=== PATIENT | female | born 2000 | race Caucasian/White ===

== ENCOUNTER 2021-09-15 01:12 | Outpatient (CLI) | payer MEDICAID, SELFPAY ==
--- NOTE | 2021-09-15 10:30 | DI.US_ITS ---
Exam(s) US OB 1ST TRIMESTER EXAM: US OB 1ST TRIMESTER CLINICAL HISTORY: SUPERVISION NORMAL Z34.91, SIZE AND DATES. COMPARISON: No exams were available for comparison TECHNIQUE: Transabdominal obstetrical ultrasound performed. FINDINGS: Sonographic images demonstrate a single intrauterine gestation in variable position. Placenta: Anterior Estimated date of delivery By LMP 30 March 2022 : heart rate motion is Dopplered at: 162 BPM. BPD: 28mm = 14+ 6 weeks HC: 96mm = 14+ 3 weeks AC: 83mm = 14+ 4 weeks FL: 14 mm = 14+ 1 weeks Sonographically assessed composite gestational age: 14+ 4 weeks Estimated date of delivery based on this ultrasound is: 12 Mar 2022 Amniotic fluid index visually within normal limits. Uterus: 14.4 x 9.5 x 10.2 cm Rt Ovary: 2.4 x 2.6 x 1.7 cm Lt Ovary: 2.4 x 2.4 x 1.2 cm IMPRESSION: Single living intrauterine gestation measuring 14 weeks 4 days.. DATA REPOSITORY:
== END 2021-09-15 01:32 ==
PROVIDERS: Visit Provider Family Medicine
DX: Z34.91 Encounter for supervision of normal pregnancy, unspecified, first trimester (principal)
CPT/HCPCS: 76801

== ENCOUNTER 2021-10-20 02:56 | Outpatient (CLI) | payer MEDICAID, SELFPAY ==
--- NOTE | 2021-10-20 07:00 | DI.US_ITS ---
Exam(s) US OB 2-3 TRIMESTER EXAM: US OB 2-3 TRIMESTER CLINICAL HISTORY: SURVEY, Z34.91. TECHNIQUE: Transabdominal obstetrical ultrasound was performed. COMPARISON: US US OB 1ST TRIMESTER from 09/15/2021 FINDINGS: There is a single viable intrauterine gestation with cardiac activity identified-149 bpm. Amniotic fluid: There is a normal amount of amniotic fluid. Placental location: The placenta is anterior grade 1,with no evidence of placenta previa. ANATOMY: A 3 vessel umbilical cord is seen. A four-chamber cardiac view was obtained. Right and left ventricular outflow tracts were imaged. There are no obvious abnormalities of the spinal column evident. There is no obvious abnormal ity of the anterior abdominal wall. stomach and urinary bladder are identified and there is no evidence of hydronephrosis. No abnormalities of the upper lip region are identified. No evidence of choroid plexus cysts i n the brain. Dating parameters place this at approximately 19 weeks and 4 days gestational age. BPD measures 19 weeks and 5 days HC measures 19 weeks and 4 days AC measures 19 weeks and 5 days FL measures 19 weeks and 3 days Estimated weight is 301 gm-0 pounds 11 ounces Fetus is at the 46th percentile on the Hadlock scale. IMPRESSION:: Single viable intrauterine gestation which is approximately 19 weeks and 4 days gestati onal age, implying an CHAD of March 12, 2022. There are no obvious anomalies evident on today's study. The placenta is anterior with no evidence of placenta previa. There is a normal amount of amniotic fluid. DATA REPOSITORY:
== END 2021-10-20 03:16 ==
PROVIDERS: Visit Provider Family Medicine
DX: Z34.91 Encounter for supervision of normal pregnancy, unspecified, first trimester (principal)
CPT/HCPCS: 76805

== ENCOUNTER 2021-12-13 12:22 | Outpatient (CLI) | payer MEDICAID, SELFPAY ==
[2021-12-13 12:05] VITALS: BP 117/57; PULSE 97; TEMP 36.5
[2021-12-13 12:08] VITALS: BP 117/57; PULSE 97
[2021-12-13] MEDS: Lactated Ringers 1,000 ML 250 ML IV (12:15)
[2021-12-13 12:26] VITALS: BP 117/57; PULSE 97; TEMP 36.5
[2021-12-13 12:30] LABS: Source Nasal/Nares
[2021-12-13] MEDS: Ondansetron 4 MG/2 ML VIAL 8 MG IV (12:37)
[2021-12-13 13:18] VITALS: BP 117/57; PULSE 97; TEMP 36.5
[2021-12-13 13:20] LABS: COVID-19 PCR Negative (Negative)
--- NOTE | 2021-12-13 13:22 | NUR.NOTE ---
RN spoke with MD Lopez to report pt has trace protein in urine and large amount of ketones. Also to report pt is feeling much better since she got the zofran and half a liter of fluid. would like RN to bolus pt with 1500cc of LR then pt can go home if she's feeling betterNursing Note:
[2021-12-13] MEDS: Lactated Ringers 1,000 ML 999 ML IV (13:43)
--- NOTE | 2021-12-13 14:49 | NUR.NOTE ---
RN spoke with MD Lopez, pt is done with 2 liters of fluid and took a nap, pt reports she is feeling well and ready to go home, said pt is ok to go home. RN will discharge ptNursing Note:
--- NOTE | 2022-03-12 22:32 | W.OBNST ---
Date of service: 03/12/22 Time of Service: 21:32 NST Evaluation Reason for NST Reasons for Nonstress Test: OTHER, SEE COMMENT Reason for NST Other: GI Bug Gestational Age Gestational Age in Weeks and Days: 37 Weeks and 3Days Test and Monitor Explained Test/Monitor Explained: Test Explained, Monitor Explained and Patient Verbalized Understanding Vital Signs Blood Pressure: 117/57 Pulse: 97 Temperature: 97.7 F Urine Results Urine Protein: Positive Urine Ketones: Positive Urine Glucose: Negative Urine Blood: Negative NST Information Date on Monitor: 12/13/21 Time on Monitor: 12:01 Date off Monitor: 12/13/21 Time off Monitor: 12: Total Time on Monitor: 21 NST Interventions: IV Fluids Contraction Frequency: 0 NST Evaluation Patient States Movement: Present FHR Baseline: 150 Variability: Moderate 6-25 bpm Accelerations: 10x10 Decelerations: None NST Results: Reactive Note NST Note Note: Reactive NST NST Reviewed and Verified by: Fernanda Vazquez
[2022-03-12 22:33] VITALS: BP 117/57; PULSE 97; TEMP 36.5
== END 2021-12-13 12:23 | disposition home or self-care (01) ==
LOC: BCD 12-16 12:22
PROVIDERS: PCP Nurse Practitioner Family; Visit Provider Family Medicine
DX: O99.612 Diseases of the digestive system complicating pregnancy, second trimester (principal); A09 Infectious gastroenteritis and colitis, unspecified; Z3A.27 27 weeks gestation of pregnancy; Z20.822 Contact with and (suspected) exposure to COVID-19
CPT/HCPCS: 59025; 87635; 96360; 96361; J2405

== ENCOUNTER 2022-01-15 02:00 | Outpatient (CLI) | payer MEDICAID, SELFPAY ==
--- NOTE | 2022-01-15 14:30 | DI.US_ITS ---
Exam(s) US OB GABBY WEIGHT EXAM: US OB GABBY WEIGHT CLINICAL HISTORY: GROWTH SCAN FOR + COVID, Z34.90. TECHNIQUE: Transabdominal obstetrical ultrasound performed. COMPARISON: US US OB 2-3 TRIMESTER from 10/20/2021 FINDINGS: Transabdominal obstetrical ultrasound performed. FINDINGS: Number of fetuses: One. position: Cephalic. Placental location: There is a grade 1 anterior placenta. No evidence of previa. BIOMETRIC DATA: BPD: 85 mm = 34 weeks 1 day HC: 306 mm = 34 weeks AC: 290 mm = 33 weeks 5 days FL: 66 mm = 33 weeks 6 days EFW: 2285 grms 91% Composite Age: 34 weeks EDC: 02/26/2022 Heart Rate: 135BPM Amniotic fluid index: 21 cm. Visually, amount of fluid is within normal limits. IMPRESSION: 1. Single live intrauterine gestation as above. 2. Estimated weight is 2285gms. 3. Amniotic fluid index is 21 cm. Visually within normal limits. DATA REPOSITORY:
== END 2022-01-15 02:20 ==
PROVIDERS: PCP Nurse Practitioner Family; Visit Provider Nurse Practitioner Family
DX: Z34.93 Encounter for supervision of normal pregnancy, unspecified, third trimester (principal)
CPT/HCPCS: 76816

== ENCOUNTER 2022-02-22 15:54 | Inpatient (IN) | payer MEDICAID, SELFPAY ==
--- NOTE | 2022-02-22 15:58 | W.PM.OBHPL1 ---
Date of service: 02/22/22 Time of Service: 19:46 Assessment and Plan Assessment and plan (1) Encounter for induction of labor: Status: Acute Assessment and plan: 21 yo at 37w3d here for IOL due to preeclampsia at term. Bishops score of 4. Risks and benefits of induction have been discussed with Pam and partner Kameron. FHT cat 1. Baby with potential to be LGA. - plan misoprostol 25mcg vaginally every 4 hours, consider cook catheter, followed by pitocin. - GBS neg (2) Preeclampsia: Status: Acute Assessment and plan: SBP repeatedly over 140 for the last month, 24 hour urine protein in preeclampsia range. Other PEC labs neg. Other than mild headache, she is asymptomatic. - f/u CBC, CMP - check BP per protocol (3) and not yet delivered in third trimester: Status: Acute OB-HPI Labor/Delivery History of Present Illness Reason for Visit: Preeclampsia, Induction of Labor Chief Complaint: Scheduled Induction of Labor Indication for Induction: PreEclampsia. CHAD Calculator Estimated Delivery Date Method Current WG Current Estimate 03/12/22 Ultrasound #1 37w 3d Comments: 21 yo here at 37w3d for IOL due to preeclampsia. Systolic blood pressures have been repeatedly in the 140s and 24 hour urine protein 468mg. Platelets, creatinine, LFTs have been normal. She has had intermittent mild headaches, no other preeclampsia symptoms. +FM, no contractions, leakage of fluid or vaginal bleeding. AB pos. GBS neg. RI. history notable for tobacco use in first trimester, has since quit. Obesity, BMI 34 in first trimester with 44lb weight gain. course otherwise notable for COVID positive in early August. She was fully vaccinated and also received the booster. Growth scan at 32 weeks with baby 91%ile. GABBY 21. Grade 1 anterior placenta. History of Present Expected Delivery Route/Plan Informed Consent Informed Consent: Induction of Labor and Risk,Benefits,Alternatives Discussed Review of Systems Narrative: negative unless as noted in HPI PFSH All Active Problems Encounter for induction of labor (Acute) Preeclampsia (Acute) and not yet delivered in third trimester (Acute) Social History Smoking/Tobacco Use Status: Current-Occasional Tobacco Type: cigarettes Smoking risk assessment performed?: Yes Alcohol Intake: never Drug use: Never Substance use type: does not use History History 1 Para Hx # Term Pregnancies Multiple births Hx # Pregnancies Ectopic pregnancies AB induced Hx Number of Living Children AB spontaneous Meds Allergies and Home Medications Home Medications Medication Instructions Recorded Confirmed Type folic acid 400 mcg tablet 400 mcg PO DAILY 02/22/22 02/22/22 History ondansetron HCl 4 mg tablet 4 mg PO Q8H PRN PRN 02/22/22 02/22/22 History vits,calcium 91-iron 28 1 pkg PO DAILY 02/22/22 02/22/22 History mg-folic 975 mcg-dha 200 mg oral pack ( + DHA) Exam Physical Exam Vital Signs Reviewed: Yes Constitutional Constitutional: no acute distress Detailed Labor and Delivery Exam Dilation: 1 Effacement (%): 50 station: -3 Cervix position: mid Consistency: medium Reagan Score: Cervical Points Exam 0 1 2 3 Dilation Closed 1-2cm 3-4 cm 5-6cm Effacement 0-30% 40-50% 60-70% 80% Consistency Firm Medium Soft Station -3 -2 -1,0 +1,+2 Position Posterior Mid Anterior REAGAN Score(Cervical Ripeness Score): 4 Contraction Frequency(min): 0 Fetus A Heart Rate Baseline: 125 Monitor Accelerations: 15 X 15 Monitor Decelerations: None Variability: Moderate (6-25 BPM) Presentation: Vertex Est. Weight: 3628.739 g Respiratory Exam Respiratory Exam: Normal Cardiovascular Exam Cardiovascular Exam: Normal Extremities Exam Extremities Exam: Normal Neurological Exam Neurological Exam: Normal Psychiatric Exam Psychiatric Exam: Normal Results Results Blood Type: AB+ Rubella Status: Immune Varicella Immunity: Not Tested Risk Assessment Risk for Shoulder Dystocia Historical/Initial OB: POSITIVE FOR: Pre- BMI>30 40 Weeks: POSTIVE FOR: Maternal Weight Gain >40lb; NEGATIVE FOR: EFW> 4500 gms or Post Dates Increased Risk?: Yes Risk for Pre-Eclampsia Daily Dose ASA Indicated: Yes Risk for Post- Hemorrhage At Risk?: No Risks Reviewed Risks Reviewed Upon Admission: Yes
--- OUTSIDE RECORDS SUMMARY | 2022-02-22 18:05 | XMS_ITS ---
:2000 Author Care Team Providers Name Role Phone AUNDREA EDUARDO Primary Care Provider [phone] AUNDREA EDUARDO Referring Provider [phone] HERBERT VAIL Primary Care Provider [phone] DR. JACKSON Primary Care Provider Unavailable DR. JACKSON Referring Provider Unavailable Allergies Code Code System Name Reaction Severity Status Onset NKDA ? Medications Name Status Start Date Stop Date ? ? ibuprofen 200 mg tablet Active ? Not avai lable Take 1 tablet every 6 hours by oral route as needed. 11/13 (21) 1 mg-20 mcg tablet Active ? Not available Take 1 tablet every day by oral route. Notes: nexplanon Problems Name Status Onset Date Source ? Posttraumatic Stress Disorder Active 08/08/2019 ? Pain in Right Knee Active ? ? Procedures Date Name Performed by ? 08/16/2019 MRI, Lower Extremity Joint(s), W/o [facility]rast [address] [place] [id number] (Work [address]) Results Lab Results Date Name Specimen Result Interpretation Description Value Range Status Address ? 09/09/2020 SARS CoV 2 ? Upper nasopharyngeal ? [facility] (COVID-19), Source Labor atory QL, dog boarder-PCR, & Respiratory Patho logy: Specimen [address] [facility] ? ? Normal Sars Cov-2 not detected not [facility] detected Hospital (Covid-19) Labora tory & Pathology: [address] [place] [address] 08/19/2020 SARS CoV 2 ? Upper nasopharyngeal ? [facility] (COVID-19), Source Labor atory QL, dog boarder-PCR, & Respiratory Patho logy: Specimen [address] [facility] ? ? Normal Sars Cov-2 not detected not [facility] detected [facility] (Covid-19) Labora tory & Pathology: [address] [facility] Past Encounters None recorded. Social History Tobacco Smoking Status Current Some Day Smoker Notes: 3 c ig Vaccine List None recorded. Plan of Care Reminders Provider Appointments None ? ? recorded. Lab None ? ? recorded. Referral None ? ? recorded. Procedures None ? ? recorded. Surgeries None ? ? recorded. Imaging None ? ? recorded. Vitals 08/16/2019 09:50AM ORTHO 20 FOLLOW UP Height 170.18 cm 08/08/2019 01:50PM ORTHO 20 NEW PATIENT Height Weight BMI Blood Pressure 170.18 cm 95.25 kg 32.9 kg/m2 122/74 mm[Hg]
[2022-02-22] MEDS: Normal Saline Flush 10 ML SYR IVP (19:20)
[2022-02-22 19:25] LABS: HCT 33.4 % (36.0-46.0); HGB 10.8 g/dL (11.2-15.7); MCH 28.4 pg (27.0-33.0); MCHC 32.3 % (32.0-36.0); MCV 88 fL (80-95); MPV 11.1 fL (8.0-11.0); Platelet Count 243 10^3/uL (130-400); RDW 13.6 % (11.7-14.6); RDW-SD 43.5 fL; WBC 9.46 10^3/uL (4.4-10.8)
[2022-02-22 19:28] LABS: Source Nasal/Nares
[2022-02-22 19:38] LABS: ALT 20 U/L (14-59); AST 19 U/L (15-37); Albumin 2.5 g/dL (3.4-5.0); Alkaline Phosphatase 248 U/L (46-116); BUN 9 mg/dL (7-18); Bilirubin, Total 0.3 mg/dL (0.2-1.0); CREATININE 0.7 mg/dL (0.55-1.02); Calcium 8.6 mg/dL (8.5-10.1); Chloride 105 mmol/L (98-107); Glucose 116 mg/dL (74-106); Potassium 3.4 mmol/L (3.5-5.1); Sodium 138 mmol/L (136-145); Total Protein 6.5 g/dL (6.4-8.2)
[2022-02-22] MEDS: miSOPROStol 25 MCG TAB VG ×2 (19:42→23:50)
[2022-02-22 19:53] VITALS: BP 129/63; PULSE 90; RESP 16; TEMP 36.8
[2022-02-22 20:07] LABS: COVID-19 PCR Negative (Negative)
[2022-02-22 23:21] VITALS: BP 126/66; PULSE 89
--- NOTE | 2022-02-22 23:58 | W.PM.OBNL1 ---
Date of service: 02/22/22 Time of Service: 23:58 Informed Consent Informed Consent: Induction of Labor and Risk,Benefits,Alternatives Discussed Pelvic Exam Dilation: 1 Effacement (%): 50 station: -3 Contractions Monitor Mode: External Contraction Frequency(min): irregular 2-5 Intensity: Mild Fetus A Monitor: Novii Heart Rate Baseline: 135 Presentation: Vertex Variability: Moderate (6-25 BPM) Categories: Category I Accelerations: 15 X 15 Decelerations: None Amniotic Membrane Status: Intact Assessment and Plan Assessment and plan (1) Encounter for induction of labor: Status: Acute Assessment and plan: Pam is doing well. Some mild contractions have begun, no cervical change as of yet. - miso 25mcg given, plan third dose at 4am (2) Preeclampsia: Status: Acute Assessment and plan: BP wnl. Asymptomatic. Platelets, creatinine, LFTs wnl. Objective Abnormal lab results 02/22/22 02/22/22 Range/Units 19:16 19:16 RBC 3.80 L (3.93-5.22) 10^6/uL Hgb 10.8 L (11.2-15.7) g/dL Hct 33.4 L (36.0-46.0) % MPV 11.1 H (8.0-11.0) fL Potassium 3.4 L (3.5-5.1) mmol/L Glucose 116 H (74-106) mg/dL Alkaline Phosphatase 248 H (46-116) U/L Albumin 2.5 L (3.4-5.0) g/dL Temp Pulse Resp BP 36.8 C 89 16 126/66 02/22/22 19:53 02/22/22 23:21 02/22/22 19:53 02/22/22 23:21 Laboratory Results WBC 9.46 10^3/uL (4.4-10.8) 02/22/22 19:16 RBC 3.80 10^6/uL (3.93-5.22) L 02/22/22 19:16 Hgb 10.8 g/dL (11.2-15.7) L 02/22/22 19:16 Hct 33.4 % (36.0-46.0) L 02/22/22 19:16 MCV 88 fL (80-95) 02/22/22 19:16 MCH 28.4 pg (27.0-33.0) 02/22/22 19:16 MCHC 32.3 % (32.0-36.0) 02/22/22 19:16 RDW 13.6 % (11.7-14.6) 02/22/22 19:16 Plt Count 243 10^3/uL (130-400) 02/22/22 19:16 MPV 11.1 fL (8.0-11.0) H 02/22/22 19:16 Sodium 138 mmol/L (136-145) 02/22/22 19:16 Potassium 3.4 mmol/L (3.5-5.1) L 02/22/22 19:16 Chloride 105 mmol/L (98-107) 02/22/22 19:16 Carbon Dioxide 23.0 mmol/L (21.0-32.0) 02/22/22 19:16 Anion Gap 10.0 mmol/L (3-11) 02/22/22 19:16 BUN 9 mg/dL (7-18) 02/22/22 19:16 Creatinine 0.7 mg/dL (0.55-1.02) 02/22/22 19:16 Estimated GFR/1.73 m2 >= 60.00 (mL/min/1.73m2) 02/22/22 19:16 Glucose 116 mg/dL (74-106) H 02/22/22 19:16 Calcium 8.6 mg/dL (8.5-10.1) 02/22/22 19:16 Total Bilirubin 0.3 mg/dL (0.2-1.0) 02/22/22 19:16 AST 19 U/L (15-37) 02/22/22 19:16 ALT 20 U/L (14-59) 02/22/22 19:16 Alkaline Phosphatase 248 U/L (46-116) H 02/22/22 19:16 Total Protein 6.5 g/dL (6.4-8.2) 02/22/22 19:16 Albumin 2.5 g/dL (3.4-5.0) L 02/22/22 19:16 COVID-19 Source Nasal/Nares 02/22/22 19:05 SARS-CoV-2 (PCR) Negative (Negative) 02/22/22 19:05 Patient ABO/Rh AB Positive 02/22/22 19:16 Antibody Screen NEGATIVE 02/22/22 19:16 Subjective Patient Reports: No new Complaints Interval history since last seen: Pam is tired otherwise feeling well. No contractions or cramping felt. No headaches, RUQ pain, new edema, vision changes. Results Hemoglobin/Hematocrit: Hgb 10.8 g/dL (11.2-15.7) L 02/22/22 19:16 Hct 33.4 % (36.0-46.0) L 02/22/22 19:16 Abnormal Lab Findings: Abnormal Labs 02/22/22 02/22/22 19:16 19:16 RBC 3.80 L Hgb 10.8 L Hct 33.4 L MPV 11.1 H Potassium 3.4 L Glucose 116 H Alkaline Phosphatase 248 H Albumin 2.5 L
[2022-02-23] VITALS (36 sets, daily range): BP systolic 92–134; BP diastolic 48–72; PULSE 80–106; RESP 16–18; TEMP 36.5–36.8; BMI 40.5
[2022-02-23] MEDS: miSOPROStol 50 MCG TAB 25 MCG PO (04:01)
[2022-02-23] MEDS: miSOPROStol 25 MCG TAB VG (08:00)
--- NOTE | 2022-02-23 08:16 | W.PM.OBNL1 ---
Date of service: 02/23/22 Time of Service: 08:00 Informed Consent Informed Consent: Induction of Labor and Risk,Benefits,Alternatives Discussed Pelvic Exam Dilation: 2 Effacement (%): 70 station: -3 Cervix Position: mid Consistency: soft BISHOPS Score(Cervical Ripeness Score): 6 Vaginal Exam Presentation: Vertex Contractions Contraction Frequency(min): 2-3 Contraction Duration(sec): 60 Intensity: Mild Fetus A Heart Rate Baseline: 135 Presentation: Vertex Variability: Moderate (6-25 BPM) Categories: Category I Accelerations: 15 X 15 Decelerations: None Assessment and Plan Assessment and plan (1) Encounter for induction of labor: Status: Acute Assessment and plan: After 3 doses of miso, making steady progress with good contraction pattern, albeit mild contractions. 4th dose of miso given vaginally. Plan to reassess at noon, potentially start pitocin. (2) Preeclampsia: Status: Acute Assessment and plan: Blood pressure remains under 140/90. Continue to monitor. Objective Abnormal lab results 02/22/22 02/22/22 Range/Units 19:16 19:16 RBC 3.80 L (3.93-5.22) 10^6/uL Hgb 10.8 L (11.2-15.7) g/dL Hct 33.4 L (36.0-46.0) % MPV 11.1 H (8.0-11.0) fL Potassium 3.4 L (3.5-5.1) mmol/L Glucose 116 H (74-106) mg/dL Alkaline Phosphatase 248 H (46-116) U/L Albumin 2.5 L (3.4-5.0) g/dL Temp Pulse Resp BP 36.5 C 88 17 130/67 02/23/22 07:46 02/23/22 07:46 02/23/22 07:46 02/23/22 07:46 Laboratory Results WBC 9.46 10^3/uL (4.4-10.8) 02/22/22 19:16 RBC 3.80 10^6/uL (3.93-5.22) L 02/22/22 19:16 Hgb 10.8 g/dL (11.2-15.7) L 02/22/22 19:16 Hct 33.4 % (36.0-46.0) L 02/22/22 19:16 MCV 88 fL (80-95) 02/22/22 19:16 MCH 28.4 pg (27.0-33.0) 02/22/22 19:16 MCHC 32.3 % (32.0-36.0) 02/22/22 19:16 RDW 13.6 % (11.7-14.6) 02/22/22 19:16 Plt Count 243 10^3/uL (130-400) 02/22/22 19:16 MPV 11.1 fL (8.0-11.0) H 02/22/22 19:16 Sodium 138 mmol/L (136-145) 02/22/22 19:16 Potassium 3.4 mmol/L (3.5-5.1) L 02/22/22 19:16 Chloride 105 mmol/L (98-107) 02/22/22 19:16 Carbon Dioxide 23.0 mmol/L (21.0-32.0) 02/22/22 19:16 Anion Gap 10.0 mmol/L (3-11) 02/22/22 19:16 BUN 9 mg/dL (7-18) 02/22/22 19:16 Creatinine 0.7 mg/dL (0.55-1.02) 02/22/22 19:16 Estimated GFR/1.73 m2 >= 60.00 (mL/min/1.73m2) 02/22/22 19:16 Glucose 116 mg/dL (74-106) H 02/22/22 19:16 Calcium 8.6 mg/dL (8.5-10.1) 02/22/22 19:16 Total Bilirubin 0.3 mg/dL (0.2-1.0) 02/22/22 19:16 AST 19 U/L (15-37) 02/22/22 19:16 ALT 20 U/L (14-59) 02/22/22 19:16 Alkaline Phosphatase 248 U/L (46-116) H 02/22/22 19:16 Total Protein 6.5 g/dL (6.4-8.2) 02/22/22 19:16 Albumin 2.5 g/dL (3.4-5.0) L 02/22/22 19:16 COVID-19 Source Nasal/Nares 02/22/22 19:05 SARS-CoV-2 (PCR) Negative (Negative) 02/22/22 19:05 Patient ABO/Rh AB Positive 02/22/22 19:16 Antibody Screen NEGATIVE 02/22/22 19:16 Subjective Interval history since last seen: Pam was able to get some rest last night. Feeling crampy discomfort with contractions Results Hemoglobin/Hematocrit: Hgb 10.8 g/dL (11.2-15.7) L 02/22/22 19:16 Hct 33.4 % (36.0-46.0) L 02/22/22 19:16 Abnormal Lab Findings: Abnormal Labs 02/22/22 02/22/22 19:16 19:16 RBC 3.80 L Hgb 10.8 L Hct 33.4 L MPV 11.1 H Potassium 3.4 L Glucose 116 H Alkaline Phosphatase 248 H Albumin 2.5 L
--- NOTE | 2022-02-23 12:05 | W.PM.OBNL1 ---
Date of service: 02/23/22 Time of Service: 12:05 Informed Consent Informed Consent: Induction of Labor and Risk,Benefits,Alternatives Discussed Pelvic Exam Dilation: 3 Effacement (%): 70 station: -3 Cervix Position: mid Consistency: soft BISHOPS Score(Cervical Ripeness Score): 7 Contractions Contraction Frequency(min): 1-3 Contraction Duration(sec): 30-60 Fetus A Heart Rate Baseline: 145 Variability: Moderate (6-25 BPM) Categories: Category I Accelerations: 15 X 15 Decelerations: None Assessment and Plan Assessment and plan (1) Encounter for induction of labor: Status: Acute Assessment and plan: Making slow progress, becoming more uncomfortable. Cervix more favorable. Plan to start pitocin. (2) Preeclampsia: Status: Acute Assessment and plan: Blood pressures continue to be below 140/90. Continue to monitor. Objective Abnormal lab results 02/22/22 02/22/22 Range/Units 19:16 19:16 RBC 3.80 L (3.93-5.22) 10^6/uL Hgb 10.8 L (11.2-15.7) g/dL Hct 33.4 L (36.0-46.0) % MPV 11.1 H (8.0-11.0) fL Potassium 3.4 L (3.5-5.1) mmol/L Glucose 116 H (74-106) mg/dL Alkaline Phosphatase 248 H (46-116) U/L Albumin 2.5 L (3.4-5.0) g/dL Temp Pulse Resp BP 36.5 C 88 17 130/67 02/23/22 07:46 02/23/22 07:46 02/23/22 07:46 02/23/22 07:46 Laboratory Results WBC 9.46 10^3/uL (4.4-10.8) 02/22/22 19:16 RBC 3.80 10^6/uL (3.93-5.22) L 02/22/22 19:16 Hgb 10.8 g/dL (11.2-15.7) L 02/22/22 19:16 Hct 33.4 % (36.0-46.0) L 02/22/22 19:16 MCV 88 fL (80-95) 02/22/22 19:16 MCH 28.4 pg (27.0-33.0) 02/22/22 19:16 MCHC 32.3 % (32.0-36.0) 02/22/22 19:16 RDW 13.6 % (11.7-14.6) 02/22/22 19:16 Plt Count 243 10^3/uL (130-400) 02/22/22 19:16 MPV 11.1 fL (8.0-11.0) H 02/22/22 19:16 Sodium 138 mmol/L (136-145) 02/22/22 19:16 Potassium 3.4 mmol/L (3.5-5.1) L 02/22/22 19:16 Chloride 105 mmol/L (98-107) 02/22/22 19:16 Carbon Dioxide 23.0 mmol/L (21.0-32.0) 02/22/22 19:16 Anion Gap 10.0 mmol/L (3-11) 02/22/22 19:16 BUN 9 mg/dL (7-18) 02/22/22 19:16 Creatinine 0.7 mg/dL (0.55-1.02) 02/22/22 19:16 Estimated GFR/1.73 m2 >= 60.00 (mL/min/1.73m2) 02/22/22 19:16 Glucose 116 mg/dL (74-106) H 02/22/22 19:16 Calcium 8.6 mg/dL (8.5-10.1) 02/22/22 19:16 Total Bilirubin 0.3 mg/dL (0.2-1.0) 02/22/22 19:16 AST 19 U/L (15-37) 02/22/22 19:16 ALT 20 U/L (14-59) 02/22/22 19:16 Alkaline Phosphatase 248 U/L (46-116) H 02/22/22 19:16 Total Protein 6.5 g/dL (6.4-8.2) 02/22/22 19:16 Albumin 2.5 g/dL (3.4-5.0) L 02/22/22 19:16 COVID-19 Source Nasal/Nares 02/22/22 19:05 SARS-CoV-2 (PCR) Negative (Negative) 05/01/22 19:05 Patient ABO/Rh AB Positive 02/22/22 19:16 Antibody Screen NEGATIVE 02/22/22 19:16 Subjective Interval history since last seen: Feeling more uncomfortable but still able to rest. Results Hemoglobin/Hematocrit: Hgb 10.8 g/dL (11.2-15.7) L 02/22/22 19:16 Hct 33.4 % (36.0-46.0) L 02/22/22 19:16 Abnormal Lab Findings: Abnormal Labs 02/22/22 02/22/22 19:16 19:16 RBC 3.80 L Hgb 10.8 L Hct 33.4 L MPV 11.1 H Potassium 3.4 L Glucose 116 H Alkaline Phosphatase 248 H Albumin 2.5 L
[2022-02-23] MEDS: Normal Saline Flush 10 ML SYR IVP (12:29)
[2022-02-23] MEDS: Lactated Ringers 1,000 ML 125 ML IV ×3 (12:33→22:05)
[2022-02-23] MEDS: Oxytocin/Normal Saline 30 UNIT/500 ML BAG 2 UNITS IV (12:38)
--- NOTE | 2022-02-23 13:53 | W.PM.OBNL1 ---
Date of service: 02/23/22 Time of Service: 13:53 Informed Consent Informed Consent: Induction of Labor and Risk,Benefits,Alternatives Discussed Pelvic Exam Comments: deferred Contractions Contraction Frequency(min): 2-4 Contraction Duration(sec): 60 Fetus A Heart Rate Baseline: 140 Variability: Moderate (6-25 BPM) Accelerations: 15 X 15 Decelerations: None Assessment and Plan Assessment and plan (1) Encounter for induction of labor: Status: Acute Assessment and plan: On 6ml/hr pitocin and fetus tolerating well with cat 1 FHT. More uncomfortable, would like to try nitrous soon. She would ultimately like an epidural. (2) Preeclampsia: Status: Acute Assessment and plan: BP wnl. Objective Abnormal lab results 02/22/22 02/22/22 Range/Units 19:16 19:16 RBC 3.80 L (3.93-5.22) 10^6/uL Hgb 10.8 L (11.2-15.7) g/dL Hct 33.4 L (36.0-46.0) % MPV 11.1 H (8.0-11.0) fL Potassium 3.4 L (3.5-5.1) mmol/L Glucose 116 H (74-106) mg/dL Alkaline Phosphatase 248 H (46-116) U/L Albumin 2.5 L (3.4-5.0) g/dL Temp Pulse Resp BP 36.5 C 83 17 126/63 02/23/22 07:46 02/23/22 12:27 02/23/22 07:46 02/23/22 12:27 Laboratory Results WBC 9.46 10^3/uL (4.4-10.8) 02/22/22 19:16 RBC 3.80 10^6/uL (3.93-5.22) L 02/22/22 19:16 Hgb 10.8 g/dL (11.2-15.7) L 02/22/22 19:16 Hct 33.4 % (36.0-46.0) L 02/22/22 19:16 MCV 88 fL (80-95) 02/22/22 19:16 MCH 28.4 pg (27.0-33.0) 02/22/22 19:16 MCHC 32.3 % (32.0-36.0) 02/22/22 19:16 RDW 13.6 % (11.7-14.6) 02/22/22 19:16 Plt Count 243 10^3/uL (130-400) 02/22/22 19:16 MPV 11.1 fL (8.0-11.0) H 02/22/22 19:16 Sodium 138 mmol/L (136-145) 02/22/22 19:16 Potassium 3.4 mmol/L (3.5-5.1) L 02/22/22 19:16 Chloride 105 mmol/L (98-107) 02/22/22 19:16 Carbon Dioxide 23.0 mmol/L (21.0-32.0) 02/22/22 19:16 Anion Gap 10.0 mmol/L (3-11) 02/22/22 19:16 BUN 9 mg/dL (7-18) 02/22/22 19:16 Creatinine 0.7 mg/dL (0.55-1.02) 02/22/22 19:16 Estimated GFR/1.73 m2 >= 60.00 (mL/min/1.73m2) 02/22/22 19:16 Glucose 116 mg/dL (74-106) H 02/22/22 19:16 Calcium 8.6 mg/dL (8.5-10.1) 02/22/22 19:16 Total Bilirubin 0.3 mg/dL (0.2-1.0) 02/22/22 19:16 AST 19 U/L (15-37) 02/22/22 19:16 ALT 20 U/L (14-59) 02/22/22 19:16 Alkaline Phosphatase 248 U/L (46-116) H 02/22/22 19:16 Total Protein 6.5 g/dL (6.4-8.2) 02/22/22 19:16 Albumin 2.5 g/dL (3.4-5.0) L 02/22/22 19:16 COVID-19 Source Nasal/Nares 02/22/22 19:05 SARS-CoV-2 (PCR) Negative (Negative) 02/22/22 19:05 Patient ABO/Rh AB Positive 02/22/22 19:16 Antibody Screen NEGATIVE 02/22/22 19:16 Subjective Interval history since last seen: Starting to feel much more uncomfortable and thinking about trying nitrous soon. On 6ml/hr of pitocin. Results Hemoglobin/Hematocrit: Hgb 10.8 g/dL (11.2-15.7) L 02/22/22 19:16 Hct 33.4 % (36.0-46.0) L 02/22/22 19:16 Abnormal Lab Findings: Abnormal Labs 02/22/22 02/22/22 19:16 19:16 RBC 3.80 L Hgb 10.8 L Hct 33.4 L MPV 11.1 H Potassium 3.4 L Glucose 116 H Alkaline Phosphatase 248 H Albumin 2.5 L
--- NOTE | 2022-02-23 15:46 | W.PM.OBNL1 ---
Date of service: 02/23/22 Time of Service: 15:46 Informed Consent Informed Consent: Induction of Labor and Risk,Benefits,Alternatives Discussed Pelvic Exam Dilation: 4 Effacement (%): 80 station: -3 Vaginal Exam Presentation: Vertex Contractions Contraction Frequency(min): 1-3 Contraction Duration(sec): 60 Fetus A Heart Rate Baseline: 145 Presentation: Vertex Variability: Moderate (6-25 BPM) Accelerations: 15 X 15 Decelerations: None Assessment and Plan Assessment and plan (1) Encounter for induction of labor: Status: Acute Assessment and plan: Continues to make slow progress. Cat 1 FHT. Requesting epidural. Anesthesia paged. Continue pitocin per protoocl. (2) Preeclampsia: Status: Acute Assessment and plan: BP wnl. Objective Abnormal lab results 02/22/22 02/22/22 Range/Units 19:16 19:16 RBC 3.80 L (3.93-5.22) 10^6/uL Hgb 10.8 L (11.2-15.7) g/dL Hct 33.4 L (36.0-46.0) % MPV 11.1 H (8.0-11.0) fL Potassium 3.4 L (3.5-5.1) mmol/L Glucose 116 H (74-106) mg/dL Alkaline Phosphatase 248 H (46-116) U/L Albumin 2.5 L (3.4-5.0) g/dL Temp Pulse Resp BP 36.6 C 85 17 129/67 02/23/22 13:58 02/23/22 13:58 02/23/22 13:58 02/23/22 13:58 Laboratory Results WBC 9.46 10^3/uL (4.4-10.8) 02/22/22 19:16 RBC 3.80 10^6/uL (3.93-5.22) L 02/22/22 19:16 Hgb 10.8 g/dL (11.2-15.7) L 02/22/22 19:16 Hct 33.4 % (36.0-46.0) L 02/22/22 19:16 MCV 88 fL (80-95) 02/22/22 19:16 MCH 28.4 pg (27.0-33.0) 02/22/22 19:16 MCHC 32.3 % (32.0-36.0) 02/22/22 19:16 RDW 13.6 % (11.7-14.6) 02/22/22 19:16 Plt Count 243 10^3/uL (130-400) 02/22/22 19:16 MPV 11.1 fL (8.0-11.0) H 02/22/22 19:16 Sodium 138 mmol/L (136-145) 02/22/22 19:16 Potassium 3.4 mmol/L (3.5-5.1) L 02/22/22 19:16 Chloride 105 mmol/L (98-107) 02/22/22 19:16 Carbon Dioxide 23.0 mmol/L (21.0-32.0) 02/22/22 19:16 Anion Gap 10.0 mmol/L (3-11) 02/22/22 19:16 BUN 9 mg/dL (7-18) 02/22/22 19:16 Creatinine 0.7 mg/dL (0.55-1.02) 02/22/22 19:16 Estimated GFR/1.73 m2 >= 60.00 (mL/min/1.73m2) 02/22/22 19:16 Glucose 116 mg/dL (74-106) H 02/22/22 19:16 Calcium 8.6 mg/dL (8.5-10.1) 02/22/22 19:16 Total Bilirubin 0.3 mg/dL (0.2-1.0) 02/22/22 19:16 AST 19 U/L (15-37) 02/22/22 19:16 ALT 20 U/L (14-59) 02/22/22 19:16 Alkaline Phosphatase 248 U/L (46-116) H 02/22/22 19:16 Total Protein 6.5 g/dL (6.4-8.2) 02/22/22 19:16 Albumin 2.5 g/dL (3.4-5.0) L 02/22/22 19:16 COVID-19 Source Nasal/Nares 02/22/22 19:05 SARS-CoV-2 (PCR) Negative (Negative) 02/22/22 19:05 Patient ABO/Rh AB Positive 02/22/22 19:16 Antibody Screen NEGATIVE 02/22/22 19:16 Subjective Interval history since last seen: Continues to feel more uncomfortable and feeling very tired. On 8 ml/hr pitocin. Results Hemoglobin/Hematocrit: Hgb 10.8 g/dL (11.2-15.7) L 02/22/22 19:16 Hct 33.4 % (36.0-46.0) L 02/22/22 19:16 Abnormal Lab Findings: Abnormal Labs 02/22/22 02/22/22 19:16 19:16 RBC 3.80 L Hgb 10.8 L Hct 33.4 L MPV 11.1 H Potassium 3.4 L Glucose 116 H Alkaline Phosphatase 248 H Albumin 2.5 L
--- NOTE | 2022-02-23 16:00 | W.ANESPRE ---
General Info Date of Service Date Performed: 02/23/22 Height: 5 ft 7 in Weight: 117.48 kg Body Mass Index (BMI): 40.5 Meds Allergies and Home Medications Home Medication Medication Instructions Recorded folic acid 400 mcg tablet 400 mcg PO DAILY 02/22/22 ondansetron HCl 4 mg tablet 4 mg PO Q8H PRN PRN 02/22/22 vits,calcium 91-iron 28 1 pkg PO DAILY 02/22/22 mg-folic 975 mcg-dha 200 mg oral pack ( + DHA) Current Visit Medications: Current Medications Generic Name Dose Route Start Last Admin Trade Name Freq PRN Reason Stop Dose Admin Bupivacaine HCl 0 ml 02/23/22 15:44 Bupivacaine 0.25% Pres-Free 10 Ml Vial EP 02/23/22 15:45 NOW ONE Calcium Carbonate 500 mg 02/22/22 23:55 Calcium Carbonate *Tums* 500 Mg Chew PO QID PRN PRN Fentanyl 0 mcg 02/23/22 15:44 Fentanyl 100 Mcg/2 Ml Vial EP 02/23/22 15:45 NOW ONE Fentanyl/Ropivacaine 200 ml 02/23/22 15:45 Fentanyl/Ropivacaine 2 Mcg/Ml And 0.1% 200 Ml Cadd [place] EP DIRECTED CYRUS Sodium Chloride 500 mls @ 0 mls/hr 02/22/22 15:53 Saline 500ml Bag IV PRN PRN As Directed Ringer's Solution 1,000 mls @ 200 mls/hr 02/22/22 16:00 IV INFUSION CYRUS Ringer's Solution 1,000 mls @ 125 mls/hr 02/23/22 12:00 02/23/22 12:33 IV 125 mls/hr INFUSION CYRUS Administration Oxytocin/Sodium Chloride 30 unit in 500 mls @ 2 mls/hr 02/23/22 12:00 02/23/22 14:02 Pitocin/Normal Saline IV 8 milliunits/min INFUSION CYRUS 8 mls/hr Titration Protocol 2 MILLIUNITS/MIN Ringer's Solution 500 mls @ 500 mls/hr 02/23/22 15:44 IV 02/23/22 16:43 BOLUS ONE IV Miscellaneous Supplies 1 each 02/22/22 16:00 02/22/22 19:20 Iv Access IV 1 each DIRECTED CYRUS Administration Misoprostol 25 mcg 02/22/22 16:00 02/23/22 12:52 Misoprostol 25 Mcg Tab VG Not Given Q4H CYRUS Misoprostol 25 mcg 02/23/22 04:00 02/23/22 04:01 Misoprostol 50 Mcg Tab PO 25 mcg 0400 CYRUS Administration Sodium Chloride 0 ml 02/22/22 15:53 02/23/22 12:29 Normal Saline Flush 10 Ml Syr IVP 10 ml PRN PRN Administration Terbutaline Sulfate 0.25 mg 02/22/22 15:53 Terbutaline 1 Mg/Ml Vial SC PRN PRN PFSH Active Problems Active Problems: Problem Status Onset Code Encounter for induction of labor Z34.90 Preeclampsia O14.90 and not yet delivered in third trimester Z34.93 Tobacco Smoking/Tobacco Use Status: Current-Occasional Tobacco Type: cigarettes Alcohol Alcohol Intake: never Substance Use Substance use: Never Substance use type: does not use Prental History History 1 Para Hx # Term Pregnancies Multiple births Hx # Pregnancies Ectopic pregnancies AB induced Hx Number of Living Children AB spontaneous Vital Signs and Lab Results Vital Signs Most Recent Vital Signs in EMR: Most Recent Vital Signs Temp Pulse Resp BP 36.6 C 85 17 129/67 02/23/22 13:58 02/23/22 13:58 02/23/22 13:58 02/23/22 13:58 Lab Results Result Diagrams: 02/22/22 19:16 02/22/22 19:16 Blood Type / Crossmatch: Patient ABO/Rh AB Positive 02/22/22 Antibody Screen NEGATIVE 02/22/22 Complete Blood Count: White Blood Count 9.46 10^3/uL (4.4-10.8) 02/22/22 19:16 02/22/22 Red Blood Count 3.80 10^6/uL (3.93-5.22) L 02/22/22 19:16 02/22/22 Hemoglobin 10.8 g/dL (11.2-15.7) L 02/22/22 19:16 02/22/22 Hematocrit 33.4 % (36.0-46.0) L 02/22/22 19:16 02/22/22 Platelet Count 243 10^3/uL (130-400) 02/22/22 19:16 02/22/22 Complete Metabolic Panel: Sodium Level 138 mmol/L (136-145) 02/22/22 19:16 02/22/22 Potassium Level 3.4 mmol/L (3.5-5.1) L 02/22/22 19:16 02/22/22 Chloride Level 105 mmol/L (98-107) 02/22/22 19:16 02/22/22 Carbon Dioxide Level 23.0 mmol/L (21.0-32.0) 02/22/22 19:16 02/22/22 Blood Urea Nitrogen 9 mg/dL (7-18) 02/22/22 19:16 02/22/22 Creatinine 0.7 mg/dL (0.55-1.02) 02/22/22 19:16 02/22/22 Estimated GFR/1.73 m2 >= 60.00 (mL/min/1.73m2) 02/22/22 19:16 02/22/22 Calcium Level 8.6 mg/dL (8.5-10.1) 02/22/22 19:16 02/22/22 Albumin 2.5 g/dL (3.4-5.0) L 02/22/22 19:16 02/22/22 Glucose Level 116 mg/dL (74-106) H 02/22/22 19:16 02/22/22 Liver Function Panel: Alanine Aminotransferase (ALT/SGPT) 20 U/L (14-59) 02/22/22 19:16 02/22/22 Aspartate Amino Transf (AST/SGOT) 19 U/L (15-37) 02/22/22 19:16 02/22/22 Coagulation Panel: No Data to Display Cardiac Panel: No Data to Display Arterial Blood Gas: No Data to Display Venous Blood Gas: No Data to Display Pancreas Panel: No Data to Display Thyroid Panel: No Data to Display Infectious Disease: Coronavirus (COVID-19)(PCR) Negative (Negative) 02/22/22 19:05 02/22/22 Coronavirus 2019 Source Nasal/Nares 02/22/22 19:05 02/22/22 Blood Cultures: No Data to Display Toxicology Panel: No Data to Display Panel: No Data to Display Anesthesia Assessment and Plan Anesthesia History Personal History: No History of Anesthesia Complications Family History: No Family History of Anesthesia Complications Exercise Tolerance Exercise Tolerance: Metabolic Equivalents>4 Pertinent Negatives Pertinent Negatives: No Symptoms of GERD Cardiac & Pulmonary Exam Cardiac Exam: Normal S1/S2 Heart Sounds Pulmonary Exam: Clear Bilateral Breath Sounds Implantable Cardiac Device Does patient have a Pacemaker or an ICD?: No Airway Exam Known Difficult Airway: No Mallampati Class: 2 Mouth Opening: Normal (> 3cm) Thyromental Distance: Greater than 3 cm Neck Range of Motion: Full ROM Neck Circumference: Normal Teeth Condition: Normal Dentition ASA Classification ASA Score: ASA 2 Emergency Case?: No NPO Status NPO Status: NPO Clears >2 hours, Solids >8 hours Status Status: Confirmed Anesthesia Plan Resuscitation Status: Full Code Anesthesia Technique: Epidural Anesthesia Airway Planned: Natural Airway Pain Management: Surgeon and patient request nerve block Monitors Used: Standard Monitors
[2022-02-23] MEDS: FentaNYL/ROPIvacaine 2 mcg/ml and 0.1% 200 ML CADD Cassette EP (16:46)
--- NOTE | 2022-02-23 16:54 | W.ANESNEU ---
Epidural/Spinal Catheter Date Performed: 02/23/22 Procedure Start: 16:20 Procedure Stop: 16:48 Requesting Provider: Marina Holcomb Procedure Location: Obstetrics Reason Performed: Labor Epidural Standard Monitors Applied: Blood Pressure and SpO2 Patient Position: Sitting Sedation Given (Indicate Dose Given): No Sedation given Patient Mental Status: Awake Sterility: Hand Hygiene, Surgical Cap, Surgical Mask, Sterile Gloves, Sterile Drape/Sheet and Chlorhexidine Procedure Location: L3-L4 Interspace Epidural Needle: Tuohy 17 Guage Needle Length: 3.5 Inch Needle Approach: Midline Epidural Procedure: Skin Prepped, Sterile Drape Placed, 1% Lidocaine to skin and subcutaneous tissue with 25G needle, Tuohy Needle placed, MICHELE to Saline Used, Epidural Catheter Placed and Positive Heme Noted (On first attempt at L4/5. Catheter removed and reattempted at higher level with good response) Catheter Placed?: Catheter Placed Test Dose (Indicate Dose Given): 5ml 1.5% Lidocaine with 1:200K Epinephrine Given and Negative Test Dose Loss of Resistance Depth (cm): 10 Catheter depth at skin (cm): 15 Dressing: [place] Dressing Placed, Mastisol Used and Dressing reinforced with Tape Epidural Provider Bolus (Indicate Dose Given): Total bolus dose given in 3-5 ml divided doses and Total Ropivacaine 0.1% with Fentanyl 2mcg/ml Given from pump. (ml) Dose:: 10 ml Additives (Indicate Dose Given ): None Infusion Medication: Medication Infusion Began Medication Infusion: Ropivacaine 0.1% with Fentanyl 2mcg/ml Maintenance Infusion Rate (ml/hour): 10 PCEA Bolus Dose (ml): 5 Post Procedure Pain score (0-10): 0 Block Level: T10 Paresthesia: None Ultrasound: Not Used Number of Attempts (See previous attempts in note section): 2 Procedure Tolerated: No Complications and Patient tolerated well Procedure Outcome: Successful Performed By: Adiel Méndez
[2022-02-23] MEDS: Calcium Carbonate *TUMS* 500 MG CHEW PO ×2 (17:58→21:06)
--- NOTE | 2022-02-23 21:37 | W.PM.OBNL1 ---
Date of service: 02/23/22 Time of Service: 21:00 Pelvic Exam Dilation: 4 Effacement (%): 80 station: -2 Cervix Position: anterior Consistency: soft Contractions Contraction Frequency(min): 2 Fetus A Heart Rate Baseline: 135 Variability: Moderate (6-25 BPM) Accelerations: 15 X 15 Decelerations: None Assessment and Plan Assessment and plan (1) Encounter for induction of labor: Status: Acute Assessment and plan: Minimal progress despite good contraction pattern. FHT cat I. Continue to increase pitocin per protocol. (2) Preeclampsia: Status: Acute Assessment and plan: BP wnl. Objective Temp Pulse Resp BP 36.8 C 93 H 16 125/58 L 02/23/22 17:48 02/23/22 21:20 02/23/22 17:48 02/23/22 21:20 Laboratory Results WBC 9.46 10^3/uL (4.4-10.8) 02/22/22 19:16 RBC 3.80 10^6/uL (3.93-5.22) L 02/22/22 19:16 Hgb 10.8 g/dL (11.2-15.7) L 02/22/22 19:16 Hct 33.4 % (36.0-46.0) L 02/22/22 19:16 MCV 88 fL (80-95) 02/22/22 19:16 MCH 28.4 pg (27.0-33.0) 02/22/22 19:16 MCHC 32.3 % (32.0-36.0) 02/22/22 19:16 RDW 13.6 % (11.7-14.6) 02/22/22 19:16 Plt Count 243 10^3/uL (130-400) 02/22/22 19:16 MPV 11.1 fL (8.0-11.0) H 02/22/22 19:16 Sodium 138 mmol/L (136-145) 02/22/22 19:16 Potassium 3.4 mmol/L (3.5-5.1) L 02/22/22 19:16 Chloride 105 mmol/L (98-107) 02/22/22 19:16 Carbon Dioxide 23.0 mmol/L (21.0-32.0) 02/22/22 19:16 Anion Gap 10.0 mmol/L (3-11) 02/22/22 19:16 BUN 9 mg/dL (7-18) 02/22/22 19:16 Creatinine 0.7 mg/dL (0.55-1.02) 02/22/22 19:16 Estimated GFR/1.73 m2 >= 60.00 (mL/min/1.73m2) 02/22/22 19:16 Glucose 116 mg/dL (74-106) H 02/22/22 19:16 Calcium 8.6 mg/dL (8.5-10.1) 02/22/22 19:16 Total Bilirubin 0.3 mg/dL (0.2-1.0) 02/22/22 19:16 AST 19 U/L (15-37) 02/22/22 19:16 ALT 20 U/L (14-59) 02/22/22 19:16 Alkaline Phosphatase 248 U/L (46-116) H 02/22/22 19:16 Total Protein 6.5 g/dL (6.4-8.2) 02/22/22 19:16 Albumin 2.5 g/dL (3.4-5.0) L 02/22/22 19:16 COVID-19 Source Nasal/Nares 02/22/22 19:05 SARS-CoV-2 (PCR) Negative (Negative) 02/22/22 19:05 Patient ABO/Rh AB Positive 02/22/22 19:16 Antibody Screen NEGATIVE 02/22/22 19:16 Subjective Interval history since last seen: Pam is comfortable with epidural. Getting some rest. Results Hemoglobin/Hematocrit: Hgb 10.8 g/dL (11.2-15.7) L 02/22/22 19:16 Hct 33.4 % (36.0-46.0) L 02/22/22 19:16 Abnormal Lab Findings: Abnormal Labs 02/22/22 02/22/22 19:16 19:16 RBC 3.80 L Hgb 10.8 L Hct 33.4 L MPV 11.1 H Potassium 3.4 L Glucose 116 H Alkaline Phosphatase 248 H Albumin 2.5 L
[2022-02-24] VITALS (22 sets, daily range): BP systolic 96–132; BP diastolic 58–87; PULSE 68–101; RESP 16–18; TEMP 36.3–36.8; O2SAT 95–98; BMI 40.5
--- NOTE | 2022-02-24 01:32 | W.PM.OBNL1 ---
Date of service: 02/24/22 Time of Service: 01:32 Informed Consent Informed Consent: Induction of Labor and Risk,Benefits,Alternatives Discussed Pelvic Exam Comments: deferred Contractions Contraction Frequency(min): 2-3 Fetus A Heart Rate Baseline: 135 Presentation: Vertex Variability: Moderate (6-25 BPM) Accelerations: Present Decelerations: None Assessment and Plan Assessment and plan (1) Encounter for induction of labor: Status: Acute Assessment and plan: Cat I FHT. Contraction pattern has become more irregular on 20ml/h pitocin. Plan SVE when patient next awake, no later than 3 am. (2) Preeclampsia: Status: Acute Assessment and plan: BP wnl. Continue to monitor Objective Temp Pulse Resp BP 36.8 C 86 16 120/62 02/23/22 17:48 02/24/22 01:20 02/23/22 17:48 02/24/22 01:20 Laboratory Results WBC 9.46 10^3/uL (4.4-10.8) 02/22/22 19:16 RBC 3.80 10^6/uL (3.93-5.22) L 02/22/22 19:16 Hgb 10.8 g/dL (11.2-15.7) L 02/22/22 19:16 Hct 33.4 % (36.0-46.0) L 02/22/22 19:16 MCV 88 fL (80-95) 02/22/22 19:16 MCH 28.4 pg (27.0-33.0) 02/22/22 19:16 MCHC 32.3 % (32.0-36.0) 02/22/22 19:16 RDW 13.6 % (11.7-14.6) 02/22/22 19:16 Plt Count 243 10^3/uL (130-400) 02/22/22 19:16 MPV 11.1 fL (8.0-11.0) H 02/22/22 19:16 Sodium 138 mmol/L (136-145) 02/22/22 19:16 Potassium 3.4 mmol/L (3.5-5.1) L 02/22/22 19:16 Chloride 105 mmol/L (98-107) 02/22/22 19:16 Carbon Dioxide 23.0 mmol/L (21.0-32.0) 02/22/22 19:16 Anion Gap 10.0 mmol/L (3-11) 02/22/22 19:16 BUN 9 mg/dL (7-18) 02/22/22 19:16 Creatinine 0.7 mg/dL (0.55-1.02) 02/22/22 19:16 Estimated GFR/1.73 m2 >= 60.00 (mL/min/1.73m2) 02/22/22 19:16 Glucose 116 mg/dL (74-106) H 02/22/22 19:16 Calcium 8.6 mg/dL (8.5-10.1) 02/22/22 19:16 Total Bilirubin 0.3 mg/dL (0.2-1.0) 02/22/22 19:16 AST 19 U/L (15-37) 02/22/22 19:16 ALT 20 U/L (14-59) 02/22/22 19:16 Alkaline Phosphatase 248 U/L (46-116) H 02/22/22 19:16 Total Protein 6.5 g/dL (6.4-8.2) 02/22/22 19:16 Albumin 2.5 g/dL (3.4-5.0) L 02/22/22 19:16 COVID-19 Source Nasal/Nares 02/22/22 19:05 SARS-CoV-2 (PCR) Negative (Negative) 02/22/22 19:05 Patient ABO/Rh AB Positive 02/22/22 19:16 Antibody Screen NEGATIVE 02/22/22 19:16 Subjective Interval history since last seen: Patient sleeping comfortably, per nursing she feels some cramping when she is awake with contractions. On 20ml/h pitocin. Results Hemoglobin/Hematocrit: Hgb 10.8 g/dL (11.2-15.7) L 02/22/22 19:16 Hct 33.4 % (36.0-46.0) L 02/22/22 19:16 Abnormal Lab Findings: Abnormal Labs 02/22/22 02/22/22 19:16 19:16 RBC 3.80 L Hgb 10.8 L Hct 33.4 L MPV 11.1 H Potassium 3.4 L Glucose 116 H Alkaline Phosphatase 248 H Albumin 2.5 L
--- NOTE | 2022-02-24 03:19 | W.PM.OBNL1 ---
Date of service: 02/24/22 Time of Service: 03:19 Informed Consent Informed Consent: Induction of Labor and Risk,Benefits,Alternatives Discussed Pelvic Exam Dilation: 5 Effacement (%): 80 station: -3 Vaginal Exam Presentation: Vertex Contractions Contraction Frequency(min): 2-3 Fetus A Heart Rate Baseline: 135 Variability: Moderate (6-25 BPM) Accelerations: Absent Decelerations: None Assessment and Plan Assessment and plan (1) Encounter for induction of labor: Status: Acute Assessment and plan: Minimal cervical change. Cat 1 FHT. Discussed case with Dr. Vazquez who kindly assessed patient at the bedside. Plan for AROM and IUPC placement. - AROM performed for copious clear fluid - IUPC placed successfully, will monitor [place] units and increase pitocin as needed - station remains high, no descent into pelvis despite dilation and excellent contraction pattern for the duration of the induction - reassess in 2 hours, sooner if indicated (2) Preeclampsia: Status: Acute Assessment and plan: BP remains excellent Objective Temp Pulse Resp BP 36.8 C 101 H 16 132/76 02/23/22 17:48 02/24/22 02:20 02/23/22 17:48 02/24/22 02:20 Laboratory Results WBC 9.46 10^3/uL (4.4-10.8) 02/22/22 19:16 RBC 3.80 10^6/uL (3.93-5.22) L 02/22/22 19:16 Hgb 10.8 g/dL (11.2-15.7) L 02/22/22 19:16 Hct 33.4 % (36.0-46.0) L 02/22/22 19:16 MCV 88 fL (80-95) 02/22/22 19:16 MCH 28.4 pg (27.0-33.0) 02/22/22 19:16 MCHC 32.3 % (32.0-36.0) 02/22/22 19:16 RDW 13.6 % (11.7-14.6) 02/22/22 19:16 Plt Count 243 10^3/uL (130-400) 02/22/22 19:16 MPV 11.1 fL (8.0-11.0) H 02/22/22 19:16 Sodium 138 mmol/L (136-145) 02/22/22 19:16 Potassium 3.4 mmol/L (3.5-5.1) L 02/22/22 19:16 Chloride 105 mmol/L (98-107) 02/22/22 19:16 Carbon Dioxide 23.0 mmol/L (21.0-32.0) 02/22/22 19:16 Anion Gap 10.0 mmol/L (3-11) 02/22/22 19:16 BUN 9 mg/dL (7-18) 02/22/22 19:16 Creatinine 0.7 mg/dL (0.55-1.02) 02/22/22 19:16 Estimated GFR/1.73 m2 >= 60.00 (mL/min/1.73m2) 02/22/22 19:16 Glucose 116 mg/dL (74-106) H 02/22/22 19:16 Calcium 8.6 mg/dL (8.5-10.1) 02/22/22 19:16 Total Bilirubin 0.3 mg/dL (0.2-1.0) 02/22/22 19:16 AST 19 U/L (15-37) 02/22/22 19:16 ALT 20 U/L (14-59) 02/22/22 19:16 Alkaline Phosphatase 248 U/L (46-116) H 02/22/22 19:16 Total Protein 6.5 g/dL (6.4-8.2) 02/22/22 19:16 Albumin 2.5 g/dL (3.4-5.0) L 02/22/22 19:16 COVID-19 Source Nasal/Nares 02/22/22 19:05 SARS-CoV-2 (PCR) Negative (Negative) 02/22/22 19:05 Patient ABO/Rh AB Positive 02/22/22 19:16 Antibody Screen NEGATIVE 02/22/22 19:16 Subjective Interval history since last seen: Pam has been able to get some rest. Pitocin at 20ml/h for 4 hours. Results Hemoglobin/Hematocrit: Hgb 10.8 g/dL (11.2-15.7) L 02/22/22 19:16 Hct 33.4 % (36.0-46.0) L 02/22/22 19:16 Abnormal Lab Findings: Abnormal Labs 02/22/22 02/22/22 19:16 19:16 RBC 3.80 L Hgb 10.8 L Hct 33.4 L MPV 11.1 H Potassium 3.4 L Glucose 116 H Alkaline Phosphatase 248 H Albumin 2.5 L
--- NOTE | 2022-02-24 03:54 | W.OBCONSULT ---
Date of service: 02/24/22 Time of Service: 03:54 Assessment and Plan Assessment and plan (1) Encounter for induction of labor: Status: Acute Assessment and plan: Patient at term who received cervical ripening and oxytocin infusion with no appreciable change in cervical dilation after oxytocin infusion at 20 milliunits/min for 4 hours. AROM performed with introduction of IUPC to document adequacy of contractions. I recommended increasing the concentration of the oxytocin infusion to achieve greater than 200 [place] units and 10 minutes into reassess cervical change after 2 hours of documented adequate contractions. My assessment of the estimated weight 4500 g. History of Present Illness History of Present Illness Chief Complaint: eval of labor progress Narrative: Pt is a 21yo G1 female approximately 37w4d EGA who was admitted to on 02/22/22 for IOL 2/2 preeclampsia. Pt received cervical ripening over night began Oxytocin infusion yesterday afternoon. She received an epidural for labor analgesia with satisfactory pain relief. I asked to evaluate pt by Marina Fairbanks MD at ~ 0300 after Oxytocin infusion had reached maximum concentration of 20min/min for ~ 4 hrs. Consults Consult date: 02/24/22 Review of Systems Narrative: Patient awake and for sterile vaginal exam. She reports feeling comfortable with epidural. Weiss to gravity drainage. PFSH All Active Problems Encounter for induction of labor (Acute) Preeclampsia (Acute) and not yet delivered in third trimester (Acute) Social History Smoking/Tobacco Use Status: Current-Occasional Tobacco Type: cigarettes Smoking risk assessment performed?: Yes Alcohol Intake: never Drug use: Never Substance use type: does not use History History 1 Para Hx # Term Pregnancies Multiple births Hx # Pregnancies Ectopic pregnancies AB induced Hx Number of Living Children AB spontaneous Exam Const General: cooperative and no acute distress OB/External & Speculum: external exam normal Manual OB Exam: dilated 5, effaced 75% and station -2 ( vertex well applied to the cervix.) Amniotic Fluid: clear Other: AROM performed with copious amount of clear amniotic fluid. IUPC placed and initial evaluation shows baseline pressure at 20mmHg with regular contractions and [place] units approaching adequate levels. heart rate by external tocometer shows moderate variability no decelerations periodic changes. Results Last Vital Signs Temp 98.2 F 02/23/22 17:48 Pulse 82 05/03/22 03:23 Resp 16 02/23/22 17:48 BP 125/60 02/24/22 03:23 Labs Result diagrams: 02/22/22 19:16 02/22/22 19:16
[2022-02-24] MEDS: Lactated Ringers 1,000 ML 125 ML IV ×2 (05:15→13:30)
--- NOTE | 2022-02-24 06:46 | W.PM.OBNL1 ---
Date of service: 02/24/22 Time of Service: 06:15 Informed Consent Informed Consent: Induction of Labor and Risk,Benefits,Alternatives Discussed Pelvic Exam Dilation: 7 Effacement (%): 90 station: -3 Contractions Contraction Frequency(min): 8 Contraction Duration(sec): 60 IUPC resting tone (mmHg): 10 IUPC peak pressure (mmHg): 30 Fetus A Heart Rate Baseline: 145 Variability: Moderate (6-25 BPM) Accelerations: 15 X 15 Decelerations: None Assessment and Plan Assessment and plan (1) Encounter for induction of labor: Status: Acute Assessment and plan: Pam is 36 hours into IOL for preeclampsia with SBP >140 repeatedly and 24 hour urine protein elevated, she received 4 doses of misoprostol with a good contraction pattern and cervical change, followed by pitocin. She made slow progress until AROM 3 hours ago after which she has made significant cervical change. However, fetus has not descended at all. Anticipating LGA baby. Given the lack of descent as well as the recent recurrent late decelerations while on pitocin, case was discussed with Dr. Vazquez and decision was made to proceed to . Pam and Kameron are comfortable with this decision. FHT is currently category 1. Left inguinal discomfort much improved with position change, likely related to maternal positioning in bed as well as position in uterus. Doubt uterine pathology such as rupture or placental pathology such as abruption. No sign of bleeding, hemodynamically stable, no tenderness over uterus itself. (2) Preeclampsia: Status: Acute Assessment and plan: Blood pressure has been within normal limits while on labor and delivery. Objective Temp Pulse Resp BP 36.8 C 97 H 16 127/66 02/24/22 06:22 02/24/22 06:19 02/23/22 17:48 02/24/22 06:19 Laboratory Results WBC 9.46 10^3/uL (4.4-10.8) 02/22/22 19:16 RBC 3.80 10^6/uL (3.93-5.22) L 02/22/22 19:16 Hgb 10.8 g/dL (11.2-15.7) L 02/22/22 19:16 Hct 33.4 % (36.0-46.0) L 02/22/22 19:16 MCV 88 fL (80-95) 02/22/22 19:16 MCH 28.4 pg (27.0-33.0) 02/22/22 19:16 MCHC 32.3 % (32.0-36.0) 02/22/22 19:16 RDW 13.6 % (11.7-14.6) 02/22/22 19:16 Plt Count 243 10^3/uL (130-400) 02/22/22 19:16 MPV 11.1 fL (8.0-11.0) H 02/22/22 19:16 Sodium 138 mmol/L (136-145) 02/22/22 19:16 Potassium 3.4 mmol/L (3.5-5.1) L 02/22/22 19:16 Chloride 105 mmol/L (98-107) 02/22/22 19:16 Carbon Dioxide 23.0 mmol/L (21.0-32.0) 02/22/22 19:16 Anion Gap 10.0 mmol/L (3-11) 02/22/22 19:16 BUN 9 mg/dL (7-18) 02/22/22 19:16 Creatinine 0.7 mg/dL (0.55-1.02) 02/22/22 19:16 Estimated GFR/1.73 m2 >= 60.00 (mL/min/1.73m2) 02/22/22 19:16 Glucose 116 mg/dL (74-106) H 02/22/22 19:16 Calcium 8.6 mg/dL (8.5-10.1) 02/22/22 19:16 Total Bilirubin 0.3 mg/dL (0.2-1.0) 02/22/22 19:16 AST 19 U/L (15-37) 02/22/22 19:16 ALT 20 U/L (14-59) 02/22/22 19:16 Alkaline Phosphatase 248 U/L (46-116) H 02/22/22 19:16 Total Protein 6.5 g/dL (6.4-8.2) 02/22/22 19:16 Albumin 2.5 g/dL (3.4-5.0) L 02/22/22 19:16 COVID-19 Source Nasal/Nares 02/22/22 19:05 SARS-CoV-2 (PCR) Negative (Negative) 02/22/22 19:05 Patient ABO/Rh AB Positive 02/22/22 19:16 Antibody Screen NEGATIVE 02/22/22 19:16 Objective Narrative Objective Narrative: TTP over left inguinal ligament and just superior to that, no rebound or guarding. Subjective Interval history since last seen: Patient report sharp LLQ/inguinal pain. Fetus with recurrent late decelerations for the last hour, nursing discontinued pitocin. as not notified of the FHT change. FHT now much improved with position changes and discontinuation of pitocin. Max dose 24mu/m Results Hemoglobin/Hematocrit: Hgb 10.8 g/dL (11.2-15.7) L 02/22/22 19:16 Hct 33.4 % (36.0-46.0) L 02/22/22 19:16 Abnormal Lab Findings: Abnormal Labs 02/22/22 02/22/22 19:16 19:16 RBC 3.80 L Hgb 10.8 L Hct 33.4 L MPV 11.1 H Potassium 3.4 L Glucose 116 H Alkaline Phosphatase 248 H Albumin 2.5 L
--- NOTE | 2022-02-24 06:58 | W.ANESPRE ---
General Info Date of Service Date Performed: 02/24/22 Height: 5 ft 7 in Weight: 117.48 kg Body Mass Index (BMI): 40.5 Surgical Procedure: Operation Date: 02/24/22 07:40 Proposed Procedure Side Surgeon p Section Fernanda Vazquez MD Meds Allergies and Home Medications Home Medication Medication Instructions Recorded folic acid 400 mcg tablet 400 mcg PO DAILY 02/22/22 ondansetron HCl 4 mg tablet 4 mg PO Q8H PRN PRN 02/22/22 vits,calcium 91-iron 28 1 pkg PO DAILY 02/22/22 mg-folic 975 mcg-dha 200 mg oral pack ( + DHA) Current Visit Medications: Current Medications Generic Name Dose Route Start Last Admin Trade Name Freq PRN Reason Stop Dose Admin Calcium Carbonate 500 mg 02/22/22 23:55 02/23/22 21:06 Calcium Carbonate *Tums* 500 Mg Chew PO 500 mg QID PRN PRN Administration Diphenhydramine HCl 25 mg 02/23/22 16:53 Diphenhydramine 50 Mg/Ml Vial IVP Q6H PRN PRN Persistent pruritis face/trunk Ephedrine Sulfate 5 mg 02/23/22 16:53 Ephedrine 50 Mg/Ml Vial IVP DIRECTED PRN Fentanyl/Ropivacaine 200 ml 02/23/22 15:45 02/23/22 16:46 Fentanyl/Ropivacaine 2 Mcg/Ml And 0.1% 200 Ml Cadd Cassette EP 200 ml DIRECTED CYRUS Administration Sodium Chloride 500 mls @ 0 mls/hr 02/22/22 15:53 Saline 500ml Bag IV PRN PRN As Directed Ringer's Solution 1,000 mls @ 200 mls/hr 02/22/22 16:00 IV INFUSION CYRUS Ringer's Solution 1,000 mls @ 125 mls/hr 02/23/22 12:00 02/23/22 16:33 IV 125 mls/hr INFUSION CYRUS Administration Oxytocin/Sodium Chloride 30 unit in 500 mls @ 2 mls/hr 02/23/22 12:00 02/24/22 06:15 Pitocin/Normal Saline IV 0 milliunits/min INFUSION CYRUS 0 mls/hr Titration Protocol 2 MILLIUNITS/MIN Naloxone HCl 2 mg/ Sodium 500 mls @ 14.685 mls/hr 02/23/22 16:53 Chloride IV INFUSION PRN pruritis 0.5 MCG/KG/HR IV Miscellaneous Supplies 1 each 02/22/22 16:00 02/22/22 19:20 Iv Access IV 1 each DIRECTED CYRUS Administration Misoprostol 25 mcg 02/22/22 16:00 02/23/22 16:50 Misoprostol 25 Mcg Tab VG Not Given Q4H CYRUS Misoprostol 25 mcg 02/23/22 04:00 02/23/22 04:01 Misoprostol 50 Mcg Tab PO 25 mcg 0400 CYRUS Administration Naloxone HCl 0 mg 02/23/22 16:53 Naloxone 0.4 Mg/Ml Vial IVP DIRECTED PRN Ondansetron HCl 4 mg 02/23/22 16:53 Ondansetron 4 Mg/2 Ml Vial IVP Q6H PRN PRN Nausea Sodium Chloride 0 ml 02/22/22 15:53 02/23/22 12:29 Normal Saline Flush 10 Ml Syr IVP 10 ml PRN PRN Administration Terbutaline Sulfate 0.25 mg 02/22/22 15:53 Terbutaline 1 Mg/Ml Vial SC PRN PRN PFSH Active Problems Active Problems: Problem Status Onset Code Encounter for induction of labor Z34.90 Preeclampsia O14.90 and not yet delivered in third trimester Z34.93 Tobacco Smoking/Tobacco Use Status: Current-Occasional Tobacco Type: cigarettes Alcohol Alcohol Intake: never Substance Use Substance use: Never Substance use type: does not use Prental History History 1 Para Hx # Term Pregnancies Multiple births Hx # Pregnancies Ectopic pregnancies AB induced Hx Number of Living Children AB spontaneous Vital Signs and Lab Results Vital Signs Most Recent Vital Signs in EMR: Most Recent Vital Signs Temp Pulse Resp BP 36.8 C 97 H 16 127/66 02/24/22 06:22 02/24/22 06:19 02/23/22 17:48 02/24/22 06:19 Lab Results Result Diagrams: 02/22/22 19:16 02/22/22 19:16 Blood Type / Crossmatch: Patient ABO/Rh AB Positive 02/22/22 Antibody Screen NEGATIVE 02/22/22 Complete Blood Count: White Blood Count 9.46 10^3/uL (4.4-10.8) 02/22/22 19:16 02/22/22 Red Blood Count 3.80 10^6/uL (3.93-5.22) L 02/22/22 19:16 02/22/22 Hemoglobin 10.8 g/dL (11.2-15.7) L 02/22/22 19:02/22/22 Hematocrit 33.4 % (36.0-46.0) L 02/22/22 19:16 02/22/22 Platelet Count 243 10^3/uL (130-400) 02/22/22 19:02/22/22 Complete Metabolic Panel: Sodium Level 138 mmol/L (136-145) 02/22/22 19:02/22/22 Potassium Level 3.4 mmol/L (3.5-5.1) L 02/22/22 19:02/22/22 Chloride Level 105 mmol/L (98-107) 02/22/22 19:02/22/22 Carbon Dioxide Level 23.0 mmol/L (21.0-32.0) 02/22/22 19:02/22/22 Blood Urea Nitrogen 9 mg/dL (7-18) 02/22/22 19:02/22/22 Creatinine 0.7 mg/dL (0.55-1.02) 02/22/22 19:02/22/22 Estimated GFR/1.73 m2 >= 60.00 (mL/min/1.73m2) 02/22/22 19:02/22/22 Calcium Level 8.6 mg/dL (8.5-10.1) 02/22/22 19:02/22/22 Albumin 2.5 g/dL (3.4-5.0) L 02/22/22 19:02/22/22 Glucose Level 116 mg/dL (74-106) H 02/22/22 19:02/22/22 Liver Function Panel: Alanine Aminotransferase (ALT/SGPT) 20 U/L (14-59) 02/22/22 19:02/22/22 Aspartate Amino Transf (AST/SGOT) 19 U/L (15-37) 02/22/22 19:02/22/22 Coagulation Panel: No Data to Display Cardiac Panel: No Data to Display Arterial Blood Gas: No Data to Display Venous Blood Gas: No Data to Display Pancreas Panel: No Data to Display Thyroid Panel: No Data to Display Infectious Disease: Coronavirus (COVID-19)(PCR) Negative (Negative) 02/22/22 19:05 02/22/22 Coronavirus 2019 Source Nasal/Nares 02/22/22 19:05 02/22/22 Blood Cultures: No Data to Display Toxicology Panel: No Data to Display Panel: No Data to Display Anesthesia Assessment and Plan Anesthesia History Personal History: No History of Anesthesia Complications Family History: No Family History of Anesthesia Complications Exercise Tolerance Exercise Tolerance: Metabolic Equivalents>4 Pertinent Negatives Pertinent Negatives: No Major Cardiovascular Symptoms or Complaints and No Major Pulmonary Symptoms or Complaints Cardiac & Pulmonary Exam Cardiac Exam: Normal S1/S2 Heart Sounds Pulmonary Exam: Clear Bilateral Breath Sounds Implantable Cardiac Device Does patient have a Pacemaker or an ICD?: No Airway Exam Known Difficult Airway: No Mallampati Class: 2 Mouth Opening: Normal (> 3cm) Thyromental Distance: Greater than 3 cm Neck Range of Motion: Full ROM Neck Circumference: Normal Teeth Condition: Normal Dentition ASA Classification ASA Score: ASA 3 Emergency Case?: No NPO Status NPO Status: Full Stomach Status Status: Confirmed Anesthesia Plan Resuscitation Status: Full Code Anesthesia Technique: Spinal Anesthesia Airway Planned: Natural Airway Monitors Used: Standard Monitors
--- NOTE | 2022-02-24 06:58 | W.PM.OBNL1 ---
Date of service: 02/24/22 Time of Service: 06:59 Informed Consent Informed Consent: Section Delivery, Induction of Labor and Risk,Benefits,Alternatives Discussed Pelvic Exam Dilation: 7 Effacement (%): 100 station: -2 Position: OA Cervix Position: anterior Consistency: soft Vaginal Exam Presentation: Cephalic Contractions Monitor Mode: Internal Contraction Duration(sec): 60 Intensity: Mild/Moderate IUPC resting tone (mmHg): 20 IUPC peak pressure (mmHg): 70 IUPC [place] units: 210 Fetus A Monitor: External (US) Heart Rate Baseline: 140 Presentation: Cephalic Variability: Moderate (6-25 BPM) Categories: Category II FHR Rhythm: Regular Characteristics: Normal Accelerations: Present Decelerations: Late (Noted and oxytocin stopped) Recurrence: Recurrent Amniotic Membrane Status: Ruptured Objective Temp Pulse Resp BP 98.2 F 97 H 16 127/66 02/24/22 06:22 02/24/22 06:19 02/23/22 17:48 02/24/22 06:19 Laboratory Results WBC 9.46 10^3/uL (4.4-10.8) 02/22/22 19:16 RBC 3.80 10^6/uL (3.93-5.22) L 02/22/22 19:16 Hgb 10.8 g/dL (11.2-15.7) L 02/22/22 19:16 Hct 33.4 % (36.0-46.0) L 02/22/22 19:16 MCV 88 fL (80-95) 02/22/22 19:16 MCH 28.4 pg (27.0-33.0) 02/22/22 19:16 MCHC 32.3 % (32.0-36.0) 02/22/22 19:16 RDW 13.6 % (11.7-14.6) 02/22/22 19:16 Plt Count 243 10^3/uL (130-400) 02/22/22 19:16 MPV 11.1 fL (8.0-11.0) H 02/22/22 19:16 Sodium 138 mmol/L (136-145) 02/22/22 19:16 Potassium 3.4 mmol/L (3.5-5.1) L 02/22/22 19:16 Chloride 105 mmol/L (98-107) 02/22/22 19:16 Carbon Dioxide 23.0 mmol/L (21.0-32.0) 02/22/22 19:16 Anion Gap 10.0 mmol/L (3-11) 02/22/22 19:16 BUN 9 mg/dL (7-18) 02/22/22 19:16 Creatinine 0.7 mg/dL (0.55-1.02) 02/22/22 19:16 Estimated GFR/1.73 m2 >= 60.00 (mL/min/1.73m2) 02/22/22 19:16 Glucose 116 mg/dL (74-106) H 02/22/22 19:16 Calcium 8.6 mg/dL (8.5-10.1) 02/22/22 19:16 Total Bilirubin 0.3 mg/dL (0.2-1.0) 02/22/22 19:16 AST 19 U/L (15-37) 02/22/22 19:16 ALT 20 U/L (14-59) 02/22/22 19:16 Alkaline Phosphatase 248 U/L (46-116) H 02/22/22 19:16 Total Protein 6.5 g/dL (6.4-8.2) 02/22/22 19:16 Albumin 2.5 g/dL (3.4-5.0) L 02/22/22 19:16 COVID-19 Source Nasal/Nares 02/22/22 19:05 SARS-CoV-2 (PCR) Negative (Negative) 02/22/22 19:05 Patient ABO/Rh AB Positive 02/22/22 19:16 Antibody Screen NEGATIVE 02/22/22 19:16 Objective Narrative Objective Narrative: Patient has established adequate contractions for the past 2 and half hours with satisfactory cervical dilatation but no descent of the presenting part. She has been counseled that she has an arrest of descent and the delivery is recommended. Based on intolerance of continued contractions and no visible descent. She is agreeable to the plan Subjective Interval history since last seen: Remains comfortable with labor epidural. Interventions Other (We will proceed with delivery. Risks have been discussed with the patient including the risk of infection damage to surrounding structures including bowel bladder ureters. The risk of bleeding and need for transfusion.) Results Hemoglobin/Hematocrit: Hgb 10.8 g/dL (11.2-15.7) L 02/22/22 19:16 Hct 33.4 % (36.0-46.0) L 02/22/22 19:16 Abnormal Lab Findings: Abnormal Labs 02/22/22 02/22/22 19:16 19:16 RBC 3.80 L Hgb 10.8 L Hct 33.4 L MPV 11.1 H Potassium 3.4 L Glucose 116 H Alkaline Phosphatase 248 H Albumin 2.5 L
[2022-02-24] MEDS: Sodium Citrate 30 ML CUP PO (07:49)
[2022-02-24] MEDS: AZITHROMYCIN 500 MG in Normal Saline 250 ML 250 MG IVPB (07:49)
[2022-02-24] MEDS: ceFAZolin 3,000 MG in Normal Saline 100 ML 200 MG IVPB (08:10)
[2022-02-24] MEDS: Oxytocin/Normal Saline 30 UNIT/500 ML BAG 95 UNITS IV (08:40)
--- NOTE | 2022-02-24 09:27 | W.PM.OP ---
Date of service: 02/24/22 Time of Service: 09:33 Operative Note Operative Note DATE OF PROCEDURE: 02/24/22 PRE-OP DIAGNOSIS: IUP@ 37w4d EGA, arrest of descent PROCEDURE: unscheduled urgent low transverse delivery SURGEON: Fernanda Vazquez ASSISTING SURGEON: Lyndsay Espinosa ANESTHESIA TYPE: Spinal Refer to Anesthesia Record ESTIMATED BLOOD LOSS: 300 PATHOLOGY: other (cord blood to lab) COMPLICATIONS: None Patient was transported to: floor Patient's condition: stable Implants: none Indications: 21yo G1 female admitted approximately 37w4d EGA to on 02/22/22 for IOL 2/2 preeclampsia. Pt received cervical ripening over night began Oxytocin infusion yesterday afternoon. She received an epidural for labor analgesia with satisfactory pain relief. AROM with clear fluid and placement of IUPC were performed. She achieved complete dilation with no descent of head from-2 station. Findings: Viable male in LOT position. Clear amniotic fluid.Wt: 3750gm Apgars 7/9 . His parents plan to name him Cassius Thomas. Nl uterus, bilateral adnexa Procedure Description: Patient was taken to the operating room she is placed in the sitting position, her epidural catheter removed and spinal anesthesia was administered without difficulty. She was then placed in the dorsal supine position with a leftward tilt. SCDs and a Weiss catheter to gravity drainage were in place. A vaginal prep with Betadine was performed and the patient was prepped and draped in the usual sterile fashion.Surgical timeout was performed. After a adequate level of anesthesia was achieved a Pfannenstiel skin incision was made approximately 2 cm superior to the pubic symphysis using a scalpel and the underlying subcutaneous tissue dissected using Bovie electrocautery to the level of the rectus fascia. The rectus fascia was then nicked in the midline and the fascial incision extended laterally using curved Morris scissors. 2 Ganga clamps were applied to the inferior rectus fascia and the rectus fascia was dissected off of the underlying rectus muscles using Bovie electrocautery and blunt technique. A similar technique was carried out on the superior rectus fascia. Rectus muscles were then in the midline and the peritoneum entered bluntly. The peritoneal incision was extended laterally using blunt technique. An Dc self-retaining retractor was placed into the abdomen. The vesicle-uterine peritoneum over lower uterine segment was incised with curved Morris scissors and the bladder flap created bluntly. Scalpel was used to incise the lower uterine segment in a transverse fashion. The uterine incision was extended bluntly and the amniotic sac was ruptured with clear amniotic fluid noted. A single gloved hand was placed into the uterine cavity and the head was successfully delivered through the uterine incision followed by the trunk and extremities with the assistance of fundal pressure. The cord was doubly clamped and cut and the infant handed off to the waiting pediatric team. Cord blood was obtained and the placenta was extracted with a combination of fundal massage and gentle cord traction. The uterus remained in the abdomen and followscleared of all clots and debris. The uterine incision reapproximated with a running locked suture of 0 Vicryl followed by a second imbricating suture of 0 Vicryl. Uterine incision was noted be hemostatic. The paracolic gutters cleared of all clots and debris. Peritoneum was reapproximated with a running suture of 2-0 Vicryl. The rectus fascia was reapproximated with a running suture of 0 Vicryl. space within the subcutaneous tissue closed with a running suture of 2-0 Vicryl. The skin incision was reapproximated with a subcuticular closure of 4-0 Vicryl. Skin incision is and sealed with skin glue. The uterus was massaged for any remaining clots and debris's. The patient was transported to recovery area in stable condition. All sponge, lap, and needle counts correct x2.
[2022-02-24] MEDS: Ondansetron 4 MG/2 ML VIAL IVP (10:02)
[2022-02-24] MEDS: Normal Saline Flush 10 ML SYR IVP ×4 (10:02→14:44)
[2022-02-24] MEDS: Metoclopramide 10 MG/2 ML VIAL IVP (11:56)
[2022-02-24] MEDS: diphenhydrAMINE 50 MG/ML VIAL 25 MG IVP (12:07)
--- NOTE | 2022-02-24 12:29 | W.ANESPOSTOP ---
Postoperative Evaluation Date, Time and Location Date Performed: 02/24/22 Time Performed: 12:30 Patient Location: Obstetrics Vital Signs Most Recent Imported Vital Signs: Most Recent Vital Signs Temp Pulse Resp BP Pulse Ox 36.7 C 84 16 127/80 96 02/24/22 11:00 02/24/22 11:43 02/24/22 11:43 02/24/22 11:43 02/24/22 11:43 Pain Score Most Recent Pain Score: Most Recent Pain Score Pain Level [Abdomen] 6 02/24/22 06:15 Pain Level 0 02/24/22 10:33 Assessment Mental Status: Awake (Alert & Oriented to Patient Baseline) Airway and Respiratory Function: Patent airway with normal (patient baseline) respiratory exam Cardiovascular Function: Hemodynamically Stable Hydration Status: Adequately Hydrated Nausea & Vomiting: No Nausea or Vomiting Pain: Pain is tolerable per patient Peripheral Nerve Block: Patient did not receive a nerve block
[2022-02-24] MEDS: Acetaminophen 325 MG TAB 650 MG PO (13:33)
[2022-02-24] MEDS: Docusate Sodium 100 MG CAP PO (14:43)
[2022-02-24] MEDS: Ketorolac 30 MG/ML VIAL IVP ×2 (14:43→20:58)
[2022-02-25 00:40] VITALS: BP 115/73; PULSE 78; RESP 18; TEMP 36.8; O2SAT 96
[2022-02-25] MEDS: oxyCODONE 5 mg/Acetaminophen 325 mg TAB PO (05:11)
[2022-02-25 05:15] VITALS: BP 103/50; PULSE 78; RESP 18; TEMP 36.6
[2022-02-25 06:51] LABS: Abs Immature Grans 0.05 10^3/uL (0.0-0.06); Absolute Basophil Count 0.04 10^3/uL (0.0-0.2); Absolute Eosinophil Count 0.14 10^3/uL (0.0-0.7); Absolute Monocyte Count 0.67 10^3/uL (0.1-0.8); Absolute Neutrophil Count 6.46 10^3/uL (1.2-6.7); Basophils % 0.4; Eosinophils % 1.5; HCT 32.9 % (36.0-46.0); HGB 10.2 g/dL (11.2-15.7); Immature Grans % 0.6; Lymphocytes % 18.8; MCH 27.6 pg (27.0-33.0); MCV 89 fL (80-95); MPV 11.5 fL (8.0-11.0); Monocytes % 7.4; Neutrophils % 71.3; Platelet Count 194 10^3/uL (130-400); RBC 3.69 10^6/uL (3.93-5.22); RDW 13.9 % (11.7-14.6); RDW-SD 45.1 fL; WBC 9.06 10^3/uL (4.4-10.8)
[2022-02-25 07:38] VITALS: BP 104/65; PULSE 84; RESP 18; TEMP 36.8; O2SAT 97
--- NOTE | 2022-02-25 09:33 | W.PM.OBPNV1 ---
Date of service: 02/25/22 Time of Service: 16:59 Assessment and Plan Assessment and plan (1) Delivery by section using transverse incision of lower segment of uterus: Status: Acute Assessment and plan: Postop day 1. Pain well controlled with nonsteroidal anti-inflammatories. Vital signs of been stable. H&H satisfactory. She has received assistance with breast-feeding. The plan is to consider discharge home tomorrow if she is agreeable. (2) Preeclampsia: Status: Acute Assessment and plan: Blood pressure stable. Subjective Subjective Interval history: Patient reports that her night was long. She was awake during the night attempting to breast-feed. Bili catheter removed this morning patient able to void spontaneously during the day. She reports that her pain has been controlled with Toradol. She has not requested narcotics. Exam Physical Exam Vital signs: Temp Pulse Resp BP Pulse Ox 98 F 78 18 103/50 L 96 02/25/22 05:15 02/25/22 05:15 02/25/22 05:15 02/25/22 05:15 02/25/22 00:40 Vital Signs Reviewed: Yes Constitutional Constitutional: no acute distress Neck Exam Neck Exam: Not Done Respiratory Exam Respiratory Exam: Normal Cardiovascular Exam Cardiovascular Exam: Normal Abdominal Exam Abdomen: Other (Incision covered with skin glue. No erythema or ecchymosis) Fundal Exam Fundus: Below Umbilicus and Firm Rectal Exam Rectal Exam: Not Done Extremities Exam Extremity Exam: Normal (SCDs in place) Back/Spine/Pelvis Exam Back Exam: Not Done Skin Exam Skin Exam: Normal Neurological Exam Neurological Exam: Not Done Psychiatric Exam Psychiatric Exam: Normal Results Hemoglobin/Hematocrit: Hgb 10.2 g/dL (11.2-15.7) L 02/25/22 06:25 Hct 32.9 % (36.0-46.0) L 02/25/22 06:25 Abnormal Lab Findings: Abnormal Labs 02/22/22 02/22/22 02/25/22 19:16 19:16 06:25 RBC 3.80 L 3.69 L Hgb 10.8 L 10.2 L Hct 33.4 L 32.9 L MCHC 31.0 L D MPV 11.1 H 11.5 H Potassium 3.4 L Glucose 116 H Alkaline Phosphatase 248 H Albumin 2.5 L
[2022-02-25] MEDS: Ketorolac 30 MG/ML VIAL IVP (10:08)
[2022-02-25] MEDS: Docusate Sodium 100 MG CAP PO (10:11)
[2022-02-25] MEDS: Normal Saline Flush 10 ML SYR IVP (10:11)
[2022-02-25] MEDS: Prenatal Multivitamin w/CA,FE TAB 1 TAB PO (10:11)
[2022-02-25 12:00] VITALS: BP 124/79; PULSE 99; RESP 16; TEMP 36.7; O2SAT 95
[2022-02-25 15:41] VITALS: BP 118/67; PULSE 84; RESP 20; TEMP 36.8; O2SAT 95
--- NOTE | 2022-02-25 17:04 | DSE_ITS ---
DS: Diagnosis Discharge Diagnosis (1) Delivery by section using transverse incision of lower segment of uterus: Status: Acute (2) Preeclampsia: Status: Acute Discharge Plan Disposition Patient Disposition: HOME Condition: Good Discharge Details Reason For Visit: Arrest of labor, LTCS Admit Date/Time: 02/22/22 15:54 Admit Provider: Marina Holcomb Attending Provider: Marina Holcomb Primary Care Provider: Telma Rodriguez Hospital Course Hospital Course: 21yo G1 female admitted approximately 37w3d EGA to on 02/22/22 for IOL 2/2 preeclampsia. Pt received cervical ripening over night began Oxytocin infusion HD #2. She received an epidural for labor analgesia with satisfactory pain relief. AROM with clear fluid and placement of IUPC were performed. She achieved complete dilation with no descent of head from-2 station. And underwent a primary low transverse on the morning of 02/24/2022. Disharge home postop day #2. Breast-feeding. Stable blood pressure while hospitalized. Home Meds and New Rx's Prescriptions: No Action ibuprofen 600 mg tablet 600 mg PO Q6H PRN (Reason: pain) Qty: 60 1RF Discharge Instructions Additional Instructions: A prescription for ibuprofen 600 mg 1 tablet every 6 hours has been called into [facility] in [place]. You may shower anytime. The skin glue over your incision will protect it from the water. Make an appointment to follow-up with Marina Ballesteros MD in 2 weeks at the [facility]. Stand Alone Forms: BC Instructions, Discharge Instruc Activity:: Activity as Tolerated Equipment/Supplies:: No Equipment Needed Diet:: As Tolerated Discharge Orders Discharge Orders: Discharge Order (Routine); Ordered 02/26/22 Ordered By: Wendy Yost Discharge Data Discharge Date/Time-TO BE ENTERED AT DEPARTURE: 02/26/22 13:00 DS: Summary Time Spent with Patient providing and/or coordinating discharge services: Less than 30 minutes Status at Discharge Functional status at discharge: independent ambulation Overall status at discharge: patient is progressing back to baseline Mental Status: mental status grossly normal Speech and Movement: speech and movement normal Mood: congruent mood Affect: normal affect Exam Psych Mental Status: mental status grossly normal Speech and Movement: speech and movement normal Mood: congruent mood Affect: normal affect DS: Data Vitals/I&O Vitals and I&O: Vital Signs Temperature 98.2 F 02/25/22 15:41 Temperature Source Oral 02/24/22 10:10 Pulse 84 02/25/22 15:41 Pulse Rhythm Regular 02/25/22 15:41 Respiratory Rate 20 02/25/22 15:41 Respiratory Depth Normal 02/23/22 07:44 Blood Pressure 118/67 02/25/22 15:41 Blood Pressure Mean 84 02/25/22 15:41 Pulse Oximetry 95 02/25/22 15:41 Oxygen Delivery Method Room Air 02/24/22 10:33 Oxygen Flow Rate 0 02/24/22 10:33 Pain Level 5 02/25/22 10:08 Comment 02/23/22 16:10 Intake & Output 02/24/22 02/25/22 02/25/22 23:59 11:59 23:59 Intake Total 2489.583 / 3606.816 260.417 / 260.417 Output Total 900 / 4400 2100 / 2100 Balance 1589.583 / -793.184 -1839.583 / -1839.583 Intake: IV 2489.583 / 3606.816 260.417 / 260.417 Output: Urine 800 / 4000 2100 / 2100 Emesis 100 / 100 Other: Urine Color Yellow Yellow Yellow Urine Appearance Clear Clear Data Completed and Pending Labs on day of discharge: Labs from last 24 hours 02/25/22 06:25 WBC 9.06 RBC 3.69 L Hgb 10.2 L Hct 32.9 L MCV 89 MCH 27.6 MCHC 31.0 L D RDW 13.9 Plt Count 194 MPV 11.5 H Immature Gran % 0.6 Neutrophils % 71.3 Lymphocytes % 18.8 Monocytes % 7.4 Eosinophils % 1.5 Basophils % 0.4 Nucleated RBC % 0.0 Absolute Neutrophils 6.46 Absolute Lymphocytes 1.70 Absolute Monocytes 0.67 Absolute Eosinophils 0.14 Absolute Basophils 0.04 PFSH All Active Problems (Updated 02/27/22 @ 00:03 by EFRAIN LOZADA) Delivery by section using transverse incision of lower segment of uterus (Acute) 02/24/2022. Arrest of descent M. 3750 g. Preeclampsia (Acute) Social History (Updated 02/25/22 @ 17:07 by Fernanda Vazquez MD) Smoking/Tobacco Use Status: Current-Occasional Tobacco Type: cigarettes Smoking risk assessment performed?: Yes Alcohol Intake: never Drug use: Never Substance use type: does not use Household members: significant other, children and other Details: Lexi lopes Number of Children: 1 History History 1 Para 1 Hx # Term Pregnancies Multiple births Hx # Pregnancies Ectopic pregnancies AB induced Hx Number of Living Children 1 AB spontaneous Past Pregnancies Del. Date GA/Weeks # Outcome Route Wgt Sex Labor Lgth Anesthes ia Location [facility] 02/24/22 37 No Successful 8 lb 4.277 oz Male AOC
[2022-02-25] MEDS: Ibuprofen 600 MG TAB PO (18:43)
[2022-02-25] MEDS: Acetaminophen 325 MG TAB 650 MG PO (18:43)
[2022-02-25 21:38] VITALS: BP 122/72; PULSE 91; RESP 20; TEMP 36.7
[2022-02-26] MEDS: Acetaminophen 325 MG TAB 650 MG PO ×2 (00:09→08:01)
[2022-02-26 00:15] VITALS: BP 114/65; PULSE 82; TEMP 36.8
[2022-02-26] MEDS: Ibuprofen 600 MG TAB PO (02:08)
--- NOTE | 2022-02-26 07:34 | W.PM.OBPNV1 ---
Date of service: 02/26/22 Time of Service: 07:34 Assessment and Plan Assessment and plan (1) Delivery by section using transverse incision of lower segment of uterus: Status: Acute Assessment and plan: Postoperative day #2 ambulating, tolerating regular diet and oral pain medication with stable vital signs. Appropriate for discharge home today. Subjective Subjective Interval history: Patient seen and examined this morning. Doing well. Pain is well controlled. Vital signs are stable. Would like discharge home today. She has been ambulating, tolerating a regular diet and oral pain medication with stable vital signs. Patient's Mood: Good baby status: Doing well Exam Physical Exam Vital signs: Temp Pulse Resp BP Pulse Ox 98.2 F 82 20 114/65 95 02/26/22 00:15 02/26/22 00:15 02/25/22 21:38 02/26/22 00:15 02/25/22 15:41 Vital Signs Reviewed: Yes Constitutional Constitutional: no acute distress HEENT Exam HEENT Exam: Normal Respiratory Exam Respiratory Exam: Normal Cardiovascular Exam Cardiovascular Exam: Normal Abdominal Exam Abdomen: Tender and Other (Incision clean, dry, intact) Fundal Exam Fundus: Below Umbilicus and Firm Extremities Exam Extremity Exam: Normal and Edema (1+ symmetric bilateral); negative Calf Tenderness Neurological Exam Neurological Exam: Normal Results Hemoglobin/Hematocrit: Hgb 10.2 g/dL (11.2-15.7) L 02/25/22 06:25 Hct 32.9 % (36.0-46.0) L 02/25/22 06:25 Abnormal Lab Findings: Abnormal Labs 02/22/22 02/22/22 02/25/22 19:16 19:16 06:25 RBC 3.80 L 3.69 L Hgb 10.8 L 10.2 L Hct 33.4 L 32.9 L MCHC 31.0 L D MPV 11.1 H 11.5 H Potassium 3.4 L Glucose 116 H Alkaline Phosphatase 248 H Albumin 2.5 L
--- NOTE | 2022-02-26 07:37 | W.PM.OBDISCH ---
Date of service: 02/26/22 Time of Service: 07:38 DS: Diagnosis Discharge Diagnosis (1) Delivery by section using transverse incision of lower segment of uterus: Status: Acute Discharge Plan Disposition Patient Disposition: HOME Condition: Good Discharge Details Reason For Visit: Arrest of labor, LTCS Admit Date/Time: 02/22/22 15:54 Admit Provider: Marina Holcomb Attending Provider: Marina Holcomb Primary Care Provider: Telma Rodriguez Hospital Course Hospital Course: 21yo G1 female admitted approximately 37w3d EGA to on 02/22/22 for IOL 2/2 preeclampsia. Pt received cervical ripening over night began Oxytocin infusion HD #2. She received an epidural for labor analgesia with satisfactory pain relief. AROM with clear fluid and placement of IUPC were performed. She achieved complete dilation with no descent of head from-2 station. And underwent a primary low transverse on the morning of 02/24/2022. Disharge home postop day #2. Breast-feeding. Stable blood pressure while hospitalized. Home Meds and New Rx's Prescriptions: No Action ibuprofen 600 mg tablet 600 mg PO Q6H PRN (Reason: pain) Qty: 60 1RF oxycodone-acetaminophen [Percocet] 5-325 mg tablet 1 tab PO Q6H MDD 4 PRN (Reason: pain) Qty: 5 0RF ondansetron HCl 4 mg tablet 4 mg PO Q8H PRN PRN0RF Label Comments: TAKE ONE TABLET BY MOUTH EVERY 8 HOURS NEEDED FOR NAUSEA AND VOMITING folic acid 400 mcg Tablet 400 mcg PO DAILY 0RF + DHA 28 mg iron- 975 mcg-200 mg Combo Pack 1 pkg PO DAILY 0RF Discharge Instructions Additional Instructions: A prescription for ibuprofen 600 mg 1 tablet every 6 hours has been called into [facility] in [place]. You may shower anytime. The skin glue over your incision will protect it from the water. Make an appointment to follow-up with Marina Ballesteros MD in 2 weeks at the [facility]. Stand Alone Forms: BC Instructions, Discharge Instruc Activity:: Activity as Tolerated Equipment/Supplies:: No Equipment Needed Diet:: As Tolerated OB:DS Summary Summary Episiotomy Description: None Contraception Discussed Contraception Discussed: Yes (IUD at 6 weeks) Contraceptive Plan: IUD, Infant Gender-Baby A: Male weight: 8 lb 4.277 oz Status at Discharge Functional status at discharge: independent ambulation Overall status at discharge: patient is progressing back to baseline Mental Status: mental status grossly normal Speech and Movement: speech and movement normal Mood: congruent mood Affect: normal affect Exam Physical Exam Vital signs: Temp Pulse Resp BP Pulse Ox 98.2 F 82 20 114/65 95 02/26/22 00:15 02/26/22 00:15 02/25/22 21:38 02/26/22 00:15 02/25/22 15:41 Narrative: See physical exam from progress note dated 02/26/2022 [facility] All Active Problems (Updated 02/25/22 @ 17:02 by Fernanda Vazquez MD) Delivery by section using transverse incision of lower segment of uterus (Acute) 02/24/2022. Arrest of descent M. 3750 g. Encounter for induction of labor (Acute) Preeclampsia (Acute) and not yet delivered in third trimester (Acute) Social History (Updated 02/25/22 @ 17:07 by Fernanda Vazquez MD) Smoking/Tobacco Use Status: Current-Occasional Tobacco Type: cigarettes Smoking risk assessment performed?: Yes Alcohol Intake: never Drug use: Never Substance use type: does not use Household members: significant other, children and other Details: Lexi lopes Number of Children: 1 History History 1 Para 1 Hx # Term Pregnancies Multiple births Hx # Pregnancies Ectopic pregnancies AB induced Hx Number of Living Children 1 AB spontaneous DS: Data Vitals/I&O Vitals and I&O: Vital Signs Temperature 98.2 F 02/26/22 00:15 Temperature Source Oral 02/24/22 10:10 Pulse 82 02/26/22 00:15 Pulse Rhythm Regular 02/25/22 15:41 Respiratory Rate 20 02/25/22 21:38 Respiratory Depth Normal 02/23/22 07:44 Blood Pressure 114/65 02/26/22 00:15 Blood Pressure Mean 81 02/26/22 00:15 Pulse Oximetry 95 02/25/22 15:41 Oxygen Delivery Method Room Air 02/24/22 10:33 Oxygen Flow Rate 0 02/24/22 10:33 Pain Level 2 02/25/22 21:38 Comment 02/23/22 16:10 Intake & Output 02/25/22 02/25/22 02/26/22 11:59 23:59 11:59 Intake Total 260.417 / 260.417 Output Total 2099 Balance -1839.583 / -1839.583 Intake: IV 260.417 / 260.417 Output: Urine 2099 Other: Urine Color Yellow Yellow Urine Appearance Clear
[2022-02-26 08:00] VITALS: BP 119/76; PULSE 73; RESP 16; TEMP 36.8; O2SAT 97
[2022-02-26] MEDS: Prenatal Multivitamin w/CA,FE TAB 1 TAB PO (08:00)
== END 2022-02-26 13:00 | disposition home or self-care (01) | DRG 788 ==
PROVIDERS: Obstetrics & Gynecology Gynecology; Admitting Provider Family Medicine; PCP Nurse Practitioner Family; Visit Provider Family Medicine
PROC: 10D00Z1 Extraction of Products of Conception, Low, Open Approach (ICD-10-PCS; CPT 59514; principal; 2022-02-24 07:30)
DX: O14.94 Unspecified pre-eclampsia, complicating childbirth (principal); Z37.0 Single live birth; Z3A.37 37 weeks gestation of pregnancy; O62.1 Secondary uterine inertia; O99.334 Smoking (tobacco) complicating childbirth; F17.210 Nicotine dependence, cigarettes, uncomplicated; O61.0 Failed medical induction of labor; O61.1 Failed instrumental induction of labor
CPT/HCPCS: 59514; 36415; 80053; 85027; 86850; 86900; 86901; 87635; 59200; 85025; J0456; J0690; J1200; J1885; J2370; J2405; J2765; J3010; J3490